=== PATIENT | male | born 1980 ===

== ENCOUNTER 2024-05-08 23:13 | Inpatient (IN) | payer MEDICAID, SELFPAY ==
[2024-05-08 23:16] VITALS: BP 160/101; PULSE 129; RESP 18; TEMP 37.2; O2SAT 98; BMI 27.4
[2024-05-08 23:37] LABS: Lactate Sepsis w/Reflex* 3.2 mmol/L (0.5-1.9)
[2024-05-08 23:39] LABS: Basophils Percent Auto 0.2 % (0.0-3.0); Eosinophils Percent Auto 1.2 % (0.0-7.0); Hemoglobin* 14.5 gm/dL (13.5-17.5); Lymphocytes Percent Auto 10.2 % (20-44); Mean Corpuscular HGB Conc 34 gm/dL (32-36); Mean Corpuscular Hemoglobin 30 pg (26-34); Mean Corpuscular Volume 89 fL (80-100); Monocytes Percent Auto 5.9 % (0.0-11.0); Neutrophils Percent Auto 81.5 % (42.0-72.0); Platelet Count* 332 K/uL (140-440); RDW Coefficient of Variation % 11.7 % (11.5-15.5); Red Blood Count 4.86 m/uL (4.30-5.90); White Blood Count* 12.32 K/uL (4.50-11.00)
[2024-05-08 23:41] LABS: Slide Review Reflex No
[2024-05-08 23:55] LABS: Chloride* 104 mmol/L (96-114); Sodium* 139 mmol/L (135-149)
[2024-05-08 23:56] LABS: Potassium* 3.4 mmol/L (3.6-5.1)
[2024-05-08 23:58] LABS: Anion Gap 12 mEq/L (7-15); Carbon Dioxide* 23 mmol/L (20-32); Creatinine* 0.6 mg/dL (0.5-1.5); Estimated Glomerular Filt Rate 123 ml/min
[2024-05-08 23:59] LABS: Blood Urea Nitrogen* 11 mg/dL (5-24); Calcium* 9.9 mg/dL (8.4-10.6); Glucose* 187 mg/dL (60-115)
[2024-05-09] VITALS (8 sets, daily range): BP systolic 140–171; BP diastolic 84–118; PULSE 74–97; RESP 14–18; TEMP 36.7–36.9; O2SAT 97–100; BMI 28.0
--- NOTE | 2024-05-09 | CRLHL7_ITS ---
For Patients: As a result of the Century Cures Act, medical imaging exams and procedure reports are released immediately into your electronic medical record. You may view this report before your referring provider. If you have questions, please contact your health care provider. TECHNIQUE: Multiplanar CT examination of the facial bones was performed without the use of intravenous contrast. INDICATION: Right periorbital swelling. COMPARISON: None. FINDINGS: Severe right periorbital and frontal soft tissue swelling. No drainable abscess identified. The orbital mg are intact. The globes are symmetric in size and normal in contour. The retrobulbar fat appears within normal limits. The nasal bones are intact. The zygomatic arches are intact. The mg of the maxillary sinuses are intact. Small maxillary sinus retention cyst. There is periapical lucency involving the maxillary and mandibular dentition, compatible with odontogenic disease. The paranasal sinuses and mastoid air cells are clear. The pterygoid plates are intact. The nasopharyngeal contours are unremarkable. The mandible and temporomandibular joints are intact. IMPRESSION: Severe right periorbital soft tissue swelling, suggestive of preseptal cellulitis. No drainable abscess identified. Please note that all CT scans at this facility use dose modulation, iterative reconstruction, and/or weight-based dosing when appropriate to reduce radiation dose to as low as reasonably achievable. Dictated by Jay Hurst MD @ 05/09/2024 12:32:29 AM (Electronically Signed)
--- NOTE | 2024-05-09 00:02 | ED.GENADULT ---
HPI - General Adult General Chief complaint: Edema Stated complaint: eye and leg infection Time Seen by Provider: 05/08/24 23:51 History of Present Illness HPI narrative: Patient is a 43-year-old gentleman who states he really has no past medical history who noticed a swelling with eruption on the left posterior thigh approximately 10 days ago. He has been trying to squeeze the area which is become more more inflamed he continues to put out a exudative drainage. Area of induration is approximately he 7 cm. He has significant pain and erythema as well as drainage. Approximately 3-4 days ago patient developed a 2nd area of induration and swelling around the superior aspect of the right eye. Patient has no MEDICAL TRANSCRIPTIONIST symptoms no fevers no chills no night sweats. He does come in tonight showing signs of sepsis with elevated blood pressure 160/101 and a pulse of 129 but does not have fever. Patient has general malaise body aches and fatigue. He does smoke but does not use IV drugs and does not drink alcohol to excess. He states his tetanus shot is up-to-date. Related Data Home Medications ?Medication ?Instructions ?Recorded ?Confirmed No Known Home Medications 05/08/24 05/08/24 Allergies Allergy/AdvReac Type Severity Reaction Status Date / Time dextromethorphan Allergy Mild Hives Verified 05/08/24 23:20 [From Dimetapp Cold-Congestion] diphenhydramine Allergy Mild Hives Verified 05/08/24 23:20 [From Dimetapp Cold-Congestion] guaifenesin Allergy Mild Hives Verified 05/08/24 23:20 [From Dimetapp Cold-Congestion] phenylephrine Allergy Mild Hives Verified 05/08/24 23:20 [From Dimetapp Cold-Congestion] pseudoephedrine Allergy Mild Hives Verified 05/08/24 23:20 [From Dimetapp Cold-Congestion] Review of Systems Status of ROS: Reports: 10 or more systems reviewed and unremarkable except as noted in History and below Exam Narrative: Exam Narrative: EXAM GENERAL: Patient appears uncomfortable and ill. EYES: No scleral icterus. He has a area of induration with no palpable fluctuance superior and medial to the right eye. This is approximately 5 cm in diameter. ENT: Tympanic membranes and oropharynx normal. THYROID: no thyroid nodules or thyromegaly. LYMPH: No supraclavicular or cervical lymphadenopathy. SKIN: Area of induration with erythema and drainage in the left posterior calf consistent with subcutaneous abscess. EXT: No dependent lower extremity pedal edema. HEART: Regular rate and rhythm with no murmurs, rubs, or gallops. LUNGS: Clear to auscultation bilaterally with no crackles or wheezes. ABD: Soft, non tender, non distended. PSYCH: Good eye contact, speech is not pressured. Const: Vital Signs, click to edit/add: Vital Signs - 24 hr 05/08/24 23:16 Temperature 99.0 F Pulse Rate [Left P ulse Oximeter] 129 H Respiratory Rate 18 Blood Pressure [Ri ght Upper Arm] 160/101 H Pulse Oximetry 98 Oxygen Delivery Me thod Room Air Course Course ED Course: A very concerned about this individual and will continue fluid high duration. I did start broad-spectrum antibiotics after collecting blood cultures x2. Wound was cultured. I do note his lactate is mildly elevated CBC shows a white count of 12. Electrolytes are reassuring CRP and sed rate pending. His facial CT pending. Vital Signs Vital signs: Initial Vital Signs Temperature 99.0 F 05/08/24 23:16 Temperature Source Temporal Artery Scan 05/08/24 23:16 Pulse Rate 129 H 05/08/24 23:16 Pulse Rhythm Regular 05/08/24 23:16 Respiratory Rate 18 05/08/24 23:16 Blood Pressure 160/101 H 05/08/24 23:16 Blood Pressure Mean 120 H 05/08/24 23:16 Blood Pressure Position Sitting 05/08/24 23:16 Pulse Oximetry 98 05/08/24 23:16 Oxygen Delivery Method Room Air 05/08/24 23:16 Vital Signs Temperature 99.0 F 05/08/24 23:16 Pulse Rate 129 H 05/08/24 23:16 Respiratory Rate 18 05/08/24 23:16 Blood Pressure 160/101 H 05/08/24 23:16 Pulse Oximetry 98 05/08/24 23:16 Oxygen Delivery Method Room Air 05/08/24 23:16 Temperature 99.0 F 05/08/24 23:16 Pulse Rate 129 H 05/08/24 23:16 Respiratory Rate 18 05/08/24 23:16 Blood Pressure 160/101 H 05/08/24 23:16 Pulse Oximetry 98 05/08/24 23:16 Oxygen Delivery Method Room Air 05/08/24 23:16 Medications Administered Medications: Generic Name Dose Route Start Last Admin Trade Name Freshad PRN Reason Stop Dose Admin Sodium Chloride 1,000 mls @ 1,000 mls/hr 05/08/24 23:58 05/09/24 00:42 0.9 % Sodium Chloride 1000 Ml IV 05/09/24 00:57 Infused .Q1H RONNIE Infusion Ondansetron HCl 4 mg 05/09/24 00:10 05/09/24 00:28 Ondansetron 2 Mg/Ml Inj IVP 4 mg ONCE PRN Administration Discontinued Medications Generic Name Dose Route Start Last Admin Trade Name Freq PRN Reason Stop Dose Admin Hydromorphone HCl 0.5 mg 05/09/24 00:10 05/09/24 00:28 Hydromorphone 0.5 Mg/0.5 Ml Inj IVP 05/09/24 00:11 0.5 mg ONCE ONE Administration Piperacillin Sod/Tazobactam 100 mls @ 200 mls/hr 05/08/24 23:58 05/09/24 00:42 Sod 3.375 gm/ Sodium Chloride IVPB 05/08/24 23:59 Infused ONCE ONE Infusion Medical Decision Making MDM Narrative Medical decision making narrative: Patient presents with sepsis syndrome and 2 areas of likely cellulitis the lesion on the left posterior thigh had some fluctuance which we did send for culture. I did aggressively palpate the wound I do not believe incision drainage would be helpful now but surgical consultation can be obtained. I also obtain blood cultures x2. Leukocytosis noted sed rate CRP pending. Lactate mildly elevated patient given fluid bolus broad-spectrum antibiotics with Zosyn and vancomycin and subsequently admitted for further evaluation and treatment. Of note I did do a facial bone CT and while there is cellulitis above the right eye there does not appear to be a drainable abscess. Care transferred to hospitalist. Lab Data Labs: Lab Results 05/08/24 05/09/24 Range/Units 23:30 00:00 WBC 12.32 H (4.50-11.00) K/uL RBC 4.86 (4.30-5.90) m/uL Hgb 14.5 (13.5-17.5) gm/dL Hct 43.0 (37.0-53.0) % MCV 89 (80-100) fL MCH 30 (26-34) pg MCHC 34 (32-36) gm/dL RDW Coeff of Smita 11.7 (11.5-15.5) % Plt Count 332 (140-440) K/uL Neut % (Auto) 81.5 H (42.0-72.0) % Lymph % (Auto) 10.2 L (20-44) % [place] % (Auto) 5.9 (0.0-11.0) % Eos % (Auto) 1.2 (0.0-7.0) % Baso % (Auto) 0.2 (0.0-3.0) % Neut # (Auto) 10.00 H (1.7-7.0) K/uL Lymph # (Auto) 1.30 (0.90-2.90) K/uL [place] # (Auto) 0.70 (0.00-0.90) K/UL Eos # (Auto) 0.10 (0.00-0.50) K/uL Baso # (Auto) 0.00 (0.00-0.30) K/uL Abs Immat Gran (auto) 0.10 (0.00-0.30) K/uL Imm/Tot Granulo (auto) 1.0 % ESR 56 H (2-15) mm/hr Sodium 139 (135-149) mmol/L Potassium 3.4 L (3.6-5.1) mmol/L Chloride 104 (96-114) mmol/L Carbon Dioxide 23 (20-32) mmol/L Anion Gap 12 (7-15) mEq/L BUN 11 (5-24) mg/dL Creatinine 0.6 (0.5-1.5) mg/dL Estimated Creat Clear 194.90 Estimated GFR 123 ml/min Glucose 187 H (60-115) mg/dL Lactate 3.2 H (0.5-1.9) mmol/L Calcium 9.9 (8.4-10.6) mg/dL Discharge Plan Discharge Clinical Impression: Cellulitis Patient Disposition: Admitted As Observation Condition: Stable Activity Level: Other Discharge Diet: Other Prescriptions: No Action No Known Home Medications
[2024-05-09] MEDS: 0.9 % SODIUM CHLORIDE 1000 ml 1,000 ML IV (00:28)
[2024-05-09] MEDS: ONDANSETRON 2 MG/ML inj 4 MG IVP (00:28)
[2024-05-09] MEDS: HYDROmorphone 0.5 mg/0.5 ml inj IVP ×4 (00:28→22:30)
[2024-05-09] MEDS: PIPERACILLIN/TAZOBACTAM 3.375 GM in 0.9 % SODIUM CHLORIDE Mini-bag 100 ML IVPB (00:35)
[2024-05-09 00:48] LABS: Erythrocyte SedimentationRate* 56 mm/hr (2-15)
[2024-05-09] MEDS: VANCOMYCIN 1.5 GM/300 ML 1.5 GM/300 ML PIGGYBACK IVPB (00:52)
[2024-05-09 00:55] LABS: C Reactive Protein* 2.3 mg/dL (0.5-1.0)
--- OUTSIDE RECORDS SUMMARY | 2024-05-09 01:07 | XMS_ITS | Encounter Summary ---
Author Organization [place] Address [facility] [place] [address] Care Team Providers Care Lathe Scalper Operator Name Role Phone [facility] Primary Care Provider Aleta Mario INFORMATION TECHNOLOGY INTERN Unavailable [phone] Aleta Mario INFORMATION TECHNOLOGY INTERN Unavailable [phone] Encounter Details Date Type Department Care Team (Latest Contact Info) Description 08/10/2020 [facility] [address] [place] [address] [address] [place] [address] Deon oRdriguez MD [address] [facility] [address] [place], [place] [address] Acute periodontitis (Primary Dx) Social History Tobacco Use Types Packs/Day Years Used Date Smoking Tobacco: Every Day Cigarettes Smokeless Tobacco: Never Alcohol Use Standard Drinks/Week Comments Yes 0 (1 standard drink = 0.6 oz pur e alcohol) once a month PHQ-2 Answer Date Recorded PHQ-2 Score 0 01/22/2020 Sex and Gender Information Value Date Recorded Sex Assigned at Not on file Gender Identity Not on file Sexual Orientation Not on file COVID-19 Exposure Response Date Recorded In the last month, have you been in contact with someone who was confirmed or suspected to have Coronavirus / COVID-19? No / Unsure 08/12/2020 2:54 PM TYPE COPYIST documented as of this encounter Miscellaneous Notes * Telephone Encounter - Deon Rodriguez MD - 08/11/2020 12:12 PM TYPE COPYIST Called and spoke with Nate. Has two bad teeth on his right maxillary teeth. Having ongoing pain, swelling, and redness. No subjective fever. No other symptoms besides pain. No malaise or other constitutional sx. Rx for amoxicillin as below, 7d course. Advised any fevers above 100.5 or other worsening constitutional symptoms requires evaluation in person. Diagnoses and all orders for this visit: Acute periodontitis - amoxicillin (AMOXIL) 500 MG capsule; Take 1 capsule (500 mg) by mouth 3 times daily Deon Rodriguez MD COPYIST * Telephone Encounter - Yola Grimaldo RN - 08/10/2020 4:19 PM CST Patient wishes to be called by Dr. Rodriguez on an alternate phone number: Also, please call [employer] phone, mine isn???t working. [phone] COPYIST documented in this encounter Plan of Treatment Not on file documented as of this encounter Visit Diagnoses Diagnosis Acute periodontitis- Primary documented in this encounter Additional Health Concerns Infection Onset Date Last Indicated Resolved Time COVID-19 08/04/2020 08/04/2020 08/25/2020 11:4 1 PM TYPE COPYIST documented as of this encounter Care Teams Lathe Scalper Operator Relationship Specialty Start Date End Date [facility] [address] [place], [place] [address] PCP - General 08/04/16 Aleta Mario NP [address] [place] [address] [place] [id number] Assigned PCP 07/27/22 Aleta Mario NP [address] [place] [address] [place] [id number] Assigned Pain Medication Provider 09/25/22 03/16/23 documented as of this encounter
--- OUTSIDE RECORDS SUMMARY | 2024-05-09 01:07 | XMS_ITS | Encounter Summary ---
Author Organization [place] Address [address] [place] [address]. [place] [address] Care Team Providers Care Glass Cleaner Name Role Phone [facility] Primary Care Provider Aleta Mario AUTOMOTIVE SERVICE CONSULTANT Unavailable [phone] Aleta Mario AUTOMOTIVE SERVICE CONSULTANT Unavailable [phone] Reason for Visit * Reason Onset Date Comments MH/CD Inpatient 06/22/2019 Encounter Details Date Type Department Care Team ([facility] Contact Info) Description 06/22/[address] [facility] Behavioral Health Intake [address] [place] [id number] Generic, Behavioral Intake, MH/CD Inpatient Social History Tobacco Use Types Packs/Day Years Used Date Smoking Tobacco: Every Day Cigarettes Smokeless Tobacco: Never Alcohol Use Standard Drinks/Week Comments Yes 0 (1 standard drink = 0.6 oz pur e alcohol) once a month Sex and Gender Information Value Date Recorded Sex Assigned at Not on file Gender Identity Not on file Sexual Orientation Not on file documented as of this encounter Miscellaneous Notes * Telephone Encounter - Олег Jesus - 06/22/2019 3:22 PM CDT S Pt is a 38 year old male at the [facility]. B Pt has a history of opoid dependence, depression, and anxiety. He uses heroin up to a gram daily but only used around 1/4g and does use IV this morning. When pt cannot get heroin he uses 8-16mg of suboxone that he buys on the streets. 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 Pt denies any other drug use. He does have a history of treatment. Pt is calm and cooperative. He has no medical complaints. Pt UTOX is negative. When pt was asked by ER staff regarding his UTOX being negative pt said today he used something different and it could have possibly been fentanyl or another substance. Pt labs have resulted and his only abnormality is a high glucose level of 147. Initial vitals were: BP: (!) 156/87 Pulse: 88 Temp: 97.7 ??F (36.5 ??C) Resp: 18 SpO2: 100 % A Voluntary R Ga/3aw - Pt is a vet - This credit underwriter contacted [facility] and beds are full. However [facility] has bed availability. - Pt asked by ER Dr. Sawyer and pt declines admission for the NC and wants to be admitted to [facility] - Dr. Chino in ED wants a doc to doc initiated 4:20PM and pt will be admitted per Dr. Sepulveda documented in this encounter Plan of Treatment Not on file documented as of this encounter Visit Diagnoses Not on filedocumented in this encounter Additional Health Concerns Infection Onset Date Last Indicated Resolved Time Rule Out COVID-19 08/04/2020 08/04/2020 08/05/2020 5:31 PM LABORER GENERAL COVID-19 08/04/2020 08/04/2020 08/25/2020 11:4 1 PM LABORER GENERAL documented as of this encounter Care Teams Glass Cleaner Relationship Specialty Start Date End Date [facility] [address] [place] [address] PCP - General 08/04/16 Aleta Mario NP [address] [facility] [place] [id number] Assigned PCP 07/27/22 Aleta Mario NP [address] [facility] [place] [id number] Assigned Pain Medication Provider 09/25/22 03/16/23 documented as of this encounter
--- OUTSIDE RECORDS SUMMARY | 2024-05-09 01:07 | XMS_ITS | Encounter Summary ---
Author Organization [place] Address [facility] [place] [address] Care Team Providers Care Lump Machine Operator Name Role Phone [facility] Primary Care Provider Aleta Mario CLAY DRY PRESS OPERATOR Unavailable [phone] Aleta Mario CLAY DRY PRESS OPERATOR Unavailable [phone] Reason for Visit * Reason Onset Date Comments Prior Auth - Medication 05/12/2021 Naldemed ine Tosylate (Symproic) 0.2 mg tabs- APPROVED Encounter Details Date Type Department Care Team (Late st Contact Info) Description 05/12/2021 Telephone [facility] [address] [place] [address] Deon Rodriguez MD [address] [place] [address] Prior Auth - Medication (Naldemedine Tosylate (Symproic) 0.2 mg tabs- APPROVED ) Social History Tobacco Use Types Packs/Day Years Used Date Smoking Tobacco: Every Day Cigarettes Smokeless Tobacco: Never Alcohol Use Standard Drinks/Week Comments Yes 0 (1 standard drink = 0.6 oz pur e alcohol) once a month PHQ-2 Answer Date Recorded PHQ-2 Score 0 11/02/2020 Sex and Gender Information Value Date Recorded Sex Assigned at Not on file Gender Identity Not on file Sexual Orientation Not on file documented as of this encounter Miscellaneous Notes * Telephone Encounter - Nigel Tierney - 05/12/2021 11:25 AM CDT Images from the original note were not included. Prior Authorization Approval Authorization Effective Date: 04/12/2021 Authorization Expiration Date: 05/12/2022 Medication: Naldemedine Tosylate (Symproic) 0.2 mg tabs- APPROVED Approved Dose/Quantity: Reference #: Insurance [employer]: [employer] - Expected CoPay: CoPay Card Available: Foundation Assistance Needed: Which Pharmacy is filling the prescription (Not needed for infusion/clinic administered): [id number] [address] [place] [address] Pharmacy Notified: Yes Patient Notified: Instructed pharmacy to notify patient when script is ready to belt picker/ship. * Telephone Encounter - Nigel Tierney - 05/12/2021 10:48 AM CDT Images from the original note were not included. Central Prior Authorization Team PA Initiation Medication: Naldemedine Tosylate (Symproic) 0.2 mg tabs Insurance Company: [employer] - Pharmacy Filling the Rx: [id number] [id number] [facility] [address] [address] [address] Filling Pharmacy Filling Pharmacy Fax: Start Date: 05/12/2021 * Telephone Encounter - Nigel Tierney - 05/12/2021 10:32 AM CDT Due to PA tracking purposes, pa for doxepin has been started on another encounter. * Telephone Encounter - Daly Busby - 05/12/2021 10:15 AM CDT Prior Authorization Retail Medication Request Medication/Dose: Naldemedine Tosylate (SYMPROIC) 0.2 MG TABS ICD code (if different than what is on RX): Previously Tried and Failed: Rationale: Insurance Name: [address] [place] [address] Pharmacy Information (if different than what is on RX) [facility][id number] [facility] [address] [address] [place] [address] Prior Authorization Retail Medication Request Medication/Dose: doxepin (SILENOR) 3 MG tablet Previously Tried and Failed: Rationale: Insurance Name: [id number] Pharmacy Information (if different than what is on RX) [facility] #[id number] [place] [address] [address] [place] [address] documented in this encounter Plan of Treatment Not on file documented as of this encounter Visit Diagnoses Not on filedocumented in this encounter Additional Health Concerns Assessment Noted Time PHQ-9 Depression Total Score: 0 11/02/19 21 1:34 PM MOLD PREPARER documented as of this encounter Care Teams Lump Machine Operator Relationship Specialty Start Date End Date [facility], [facility] [address] [place], [place] [address] PCP - General 08/04/16 Aleta Mario NP [address] [place] [address] [place] [id number] Assigned PCP 07/27/22 Aleta Mario NP [address] [place] [address] [place] [id number] Assigned Pain Medication Provider 09/25/22 03/16/23 documented as of this encounter
--- OUTSIDE RECORDS SUMMARY | 2024-05-09 01:07 | XMS_ITS | Encounter Summary ---
Author Organization [place] Address [facility] [place] [address] Care Team Providers Care Box Sealing Machine Operator Name Role Phone [facility] Primary Care Provider Aleta Mario HOT ROLL LAMINATOR Unavailable [phone] Aleta Mario HOT ROLL LAMINATOR Unavailable [phone] Reason for Visit * Reason Onset Date Comments Medication Request 08/13/2019 buprenorphine HCl-naloxone HCl (SUBOXONE) 8-2 MG per film Encounter Details Date Type Department Care Team (Late st Contact Info) Description 08/13/2019 Telephone [facility] [address] [place] [address] Deon Rodriguez MD [address] [place] [address] Medication Request (buprenorphine HCl-naloxone HCl (SUBOXONE) 8-2 MG per film) Social History Tobacco Use Types Packs/Day Years [...] encounter Miscellaneous Notes * Telephone Encounter - [place] Alejandrina - 08/15/2019 11:10 AM CST Patient is scheduled for 08/18 @ 8:30 AM ON CAPTURE POWER PLANT MANAGER * Telephone Encounter - Nadia Cameron RN - 08/15/2019 9:55 AM CARBON CAPTURE POWER PLANT MANAGER Distribution Designer attempted to contact patient-- no answer, LVM with information from provider, appt option given as well. If patient calls back, please offer open sooner appt (08/18 @ 8:30am). Nadia Cameron RN 08/15/19 9:55 AM ON CAPTURE POWER PLANT MANAGER * Telephone Encounter - Deon Rodriguez MD - 08/13/2019 3:20 PM CARBON CAPTURE POWER PLANT MANAGER Patient only seen once here over 1 month ago, given 2 week supply. Will need to be seen again before bridge written. Please get him in [place], ok to double-book with me if needed. Deon Rodriguez MD ON CAPTURE POWER PLANT MANAGER * Telephone Encounter - Nadia Cameron RN - 08/13/2019 2:50 PM CARBON CAPTURE POWER PLANT MANAGER Images from the original note were not included. ??? Patient given 2 week supply of medication on 07/03-- should have been out weeks ago if taking as prescribed. Distribution Designer attempted to contact patient-- no answer, unable to LVM-- phone kept ringing If patient calls back, transfer to nursing. Medication pended for 8 day supply. Routing to provider as patient reports being out of medication as of today. Refill for: buprenorphine HCl-naloxone HCl (SUBOXONE) 8-2mg Last Appointment: 07/03/19 Next Appointment: 08/21/19 No Shows/Cancellations since last appointment: no show: 07/17 Last Refill in [facility] (date and amount/how many days): Disp Refills Start End CASPER buprenorphine HCl-naloxone HCl (SUBOXONE) 8-2 MG per film 28 Film 0 07/03/2019 -- Si.5 films in AM, 1/2 film at lunch Most Recent UDS results: POS: benzodiazepines and buprenorphine on 07/03 LEARNING SUPPORT SPECIALIST reviewed and summarized below: Nadia Cameron RN 08/13/19 2:50 PM ON CAPTURE POWER PLANT MANAGER * Telephone Encounter - Mona Hilla - 08/13/2019 2:20 PM CST Reason for Call: Medication Request due to: out of medication early Name of the pharmacy and phone number for the current request: [facility] Request for bridge of: buprenorphine HCl-naloxone HCl (SUBOXONE) 8-2 MG per film Other Information: Taking as prescribed: Yes Date/Time/ amount of last dose: 08/13 AM Pt informed to follow up with pharmacy for status of refill as addiction RN will only reach out if there are any issues or questions and will be addressed within one business day. Pt also informed that this request for a bridge is simply a request and doesn't guarantee the medication will be filled. Can we leave a detailed message on this number? Yes Phone number patient can be reached at: [phone] Best Time: ANy ON CAPTURE POWER PLANT MANAGER documented in this encounter Plan of Treatment Not on file documented as of this encounter Visit Diagnoses Diagnosis Opioid use disorder, severe, on maintenance therapy (H) documented in this encounter Additional Health Concerns Infection Onset Date Last Indicated Resolved Time Rule Out COVID-19 08/04/2020 08/04/2020 08/05/2020 5:31 PM CARBON CAPTURE POWER PLANT MANAGER COVID-19 08/04/2020 08/04/2020 08/25/2020 11:4 1 PM CARBON CAPTURE POWER PLANT MANAGER documented as of this encounter Care Teams Box Sealing Machine Operator Relationship Specialty Start Date End Date [facility] [place] [address] PCP - General 08/04/16 Aleta Mario NP [address] [place] [address] [place] [id number] Assigned PCP 07/27/22 Aleta Mario NP [address] [place] [address] [place] [id number] Assigned Pain Medication Provider 09/25/22 03/16/23 documented as of this encounter
--- OUTSIDE RECORDS SUMMARY | 2024-05-09 01:07 | XMS_ITS | Encounter Summary ---
Author Organization [place] Address [address] [place] [address] Care Team Providers Care Assistant Baseball Coach Name Role Phone [facility] Primary Care Provider Aleta Mario MUSEUM ARCHIVIST Unavailable [phone] Aleta Mario MUSEUM ARCHIVIST Unavailable [phone] Encounter Details Date Type Department Care Team ([facility] st Contact Info) Description 01/26/2022 [facility] Medical Advice [address] [address] Alejandrina Orozco V Social History Tobacco Use Types Packs/Day Years Used Date Smoking Tobacco: Every Day Cigarettes Smokeless Tobacco: Never Alcohol Use Standard Drinks/Week Comments Yes 0 (1 standard drink = 0.6 oz pur e alcohol) once a month PHQ-2 Answer Date Recorded PHQ-2 Total Score (Adult) - Positive if 3 or more points; Administer PHQ-9 if positive 0 12/23/2021 Sex and Gender Information Value Date Recorded Sex Assigned at Not on file Gender Identity Not on file Sexual Orientation Not on file documented as of this encounter Plan of Treatment Not on file documented as of this encounter Visit Diagnoses Not on filedocumented in this encounter Additional Health Concerns Assessment Noted Time PHQ-9 Depression Total Score: 6 12/25/19 22 7:04 AM CDT documented as of this encounter Care Teams Assistant Baseball Coach Relationship Specialty Start Date End Date [facility] [place] [address] PCP - General 08/04/16 Aleta Mario NP [address] [facility] [place] [id number] Assigned PCP 07/27/22 Aleta Mario NP [address] [facility] [place] [id number] Assigned Pain Medication Provider 09/25/22 03/16/23 documented as of this encounter
--- OUTSIDE RECORDS SUMMARY | 2024-05-09 01:07 | XMS_ITS | Encounter Summary ---
Author Organization [place] Address [facility]0 [facility] [place] [address] Care Team Providers Care Public Relations Intern Name Role Phone [facility] Primary Care Provider Aleta Mario FILM EDITOR SUPERVISOR Unavailable [phone] Aleta Mario FILM EDITOR SUPERVISOR Unavailable [phone] Encounter Details Date Type Department Care Team (Late st Contact Info) Description 01/22/2020 [facility] [address] [place] [address] [address] [place] [address] Deon Rodriguez MD [address] [place] [address] [address] [place], [place] [id number] Social History Tobacco Use Types Packs/Day Years [...] have Coronavirus / COVID-19? No / Unsure 01/22/2020 2:23 PM CDT documented as of this encounter Plan of Treatment Not on file documented as of this encounter Visit Diagnoses Not on filedocumented in this encounter Additional Health Concerns Infection Onset Date Last Indicated Resolved Time Rule Out COVID-19 08/04/2020 08/04/2020 08/05/2020 5:31 PM RETAIL EVENT AND SALES ASSISTANT COVID-19 08/04/2020 08/04/2020 08/25/2020 11:4 1 PM RETAIL EVENT AND SALES ASSISTANT documented as of this encounter Care Teams Public Relations Intern Relationship Specialty Start Date End Date [facility], [facility] [address] [place] [address] PCP - General 08/04/16 Aleta Mario NP [address] [place] [address] [place] [id number] Assigned PCP 07/27/22 Aleta Mario NP [address] [facility] [place] [id number] Assigned Pain Medication Provider 09/25/22 03/16/23 documented as of this encounter
--- OUTSIDE RECORDS SUMMARY | 2024-05-09 01:07 | XMS_ITS | Encounter Summary ---
Author Organization [place] Address [facility] [place] [address] Care Team Providers Care Physician Locums Urgent [facility] Name Role Phone [facility] Primary Care Provider Aleta Mario FINISH MACHINE TENDER Unavailable [phone] Aleta Mario FINISH MACHINE TENDER Unavailable [phone] Encounter Details Date Type Department Care Team (Late st Contact Info) Description 08/10/2020 [facility] [address] [place] [address] [address] [place] [address] Deon Rodriguez MD [address] [place] [address] [address] [place] [address] Social History Tobacco Use Types Packs/Day Years [...] COVID-19? No / Unsure 08/12/2020 2:54 PM SPINNING FRAME TENDER documented as of this encounter Miscellaneous Notes * Telephone Encounter - Yola Grimaldo RN - 08/10/2020 4:20 PM CST Patient sent two messages regarding the same request. Message consolidated. Closing this encounter. NING FRAME TENDER documented in this encounter Plan of Treatment Not on file documented as of this encounter Visit Diagnoses Not on filedocumented in this encounter Additional Health Concerns Infection Onset Date Last Indicated Resolved Time COVID-19 08/04/2020 08/04/2020 08/25/2020 11:4 1 PM SPINNING FRAME TENDER documented as of this encounter Care Teams Physician Locums Urgent [facility] Relationship Specialty Start Date End Date [facility] [place] [address] PCP - General 08/04/16 Aleta Mario NP [address] [place] [address] [place] [id number] Assigned PCP 07/27/22 Aleta Mario NP [address] [place] [address] [place] [id number] Assigned Pain Medication Provider 09/25/22 03/16/23 documented as of this encounter
--- OUTSIDE RECORDS SUMMARY | 2024-05-09 01:07 | XMS_ITS | Encounter Summary ---
Author Organization [place] Address [address] [place] [address] Care Team Providers Care Sales Lead Generator Name Role Phone [facility] Primary Care Provider Aleta Mario NP Unavailable [phone] Aleta Mario NP Unavailable [phone] Encounter Details Date Type Department Care Team (Late st Contact Info) Description 10/26/2021 [facility] Medical Advice [facility] [place] [address] [place] [address] [address] [place] [address] Alejandrina Orozco V Social History Tobacco [...] Total Score: 0 11/02/19 21 1:34 PM ASSISTANT BUYER documented as of this encounter Care Teams Sales Lead Generator Relationship Specialty Start Date End Date [facility] [place] [address] PCP - General 08/04/16 Aleta Mario NP [address] [place] [address] [place] [id number] Assigned PCP 07/27/22 Aleta Mario NP [address] [facility] [place] [id number] Assigned Pain Medication Provider 09/25/22 03/16/23 documented as of this encounter
--- OUTSIDE RECORDS SUMMARY | 2024-05-09 01:07 | XMS_ITS | Encounter Summary ---
Author Organization [place] Address [address] [place] [address] Care Team Providers Care Residential Support Worker Name Role Phone [facility] Primary Care Provider Aleta Mario PRECISION ASSEMBLER BENCH Unavailable [phone] Aleta Mario PRECISION ASSEMBLER BENCH Unavailable [phone] Encounter Details Date Type Department Care Team ([facility] st Contact Info) Description 09/04/2022 [facility] Medical Advice [facility] [place] [address] [place] [address] [address] [place] [address] Gabbi Kuhn Social History Tobacco Use Types Packs/Day Years Used Date Smoking Tobacco: Every Day Cigarettes Smokeless Tobacco: Never Alcohol Use Standard Drinks/Week Comments Yes 0 (1 standard drink = 0.6 oz pur e alcohol) once a month PHQ-2 Answer Date Recorded PHQ-2 Score 0 03/06/2022 Sex and Gender Information Value Date Recorded Sex Assigned at Not on file Gender Identity Not on file Sexual Orientation Not on file documented as of this encounter Plan of Treatment Not on file documented as of this encounter Visit Diagnoses Not on filedocumented in this encounter Additional Health Concerns Assessment Noted Time PHQ-9 Depression Total Score: 0 03/06/20 22 2:49 PM CDT documented as of this encounter Care Teams Residential Support Worker Relationship Specialty Start Date End Date [facility] [place], [place] [id number] PCP - General 08/04/16 Aleta Mario NP [address] [facility] [place] [id number] Assigned PCP 07/27/22 Aleta Mario NP [address] [facility] [place] [id number] Assigned Pain Medication Provider 09/25/22 03/16/23 documented as of this encounter
--- OUTSIDE RECORDS SUMMARY | 2024-05-09 01:07 | XMS_ITS | Referral Summary ---
Author Organization [place] Address [address] [place] [address] Care Team Providers Care Lamination Spinner Name Role Phone [facility] Primary Care Provider Aleta Mario DIRECTOR CLINICAL INFORMATION SERVICES Unavailable [phone] Allergies Active Allergy Reactions Criticality Noted Date Comments Ezdcabcsd-Cjr-Nf-Apap Rash Low 05/29/2013 Medications Medication Sig Dispensed Refills Start Date End Date Status nicotine polacrilex (NICORETTE) 4 MG gumIndications:Toba strategic account executive dependence syndrome Place 1 each (4 mg) inside cheek as needed for smoking cessation 110 tablet 11 09/01/2020 Active fluticasone (FLONASE) 50 MCG/ACT nasal sprayIndications:Se asonal allergic rhinitis, unspecified trigger [place] 1 spray into both nostrils daily 16 mL 1 12/01/2020 Active cetirizine (ZYRTEC) 10 MG tabletIndications:S easonal allergic rhinitis, unspecified trigger Take 1 tablet (10 mg) by mouth daily 90 tablet 3 12/01/2020 Active polyethylene glycol (MIRALAX) 17 GM/Dose powderIndications:O pioid use disorder, severe, on maintenance therapy (H) Take 17 g by mouth daily 510 g 3 08/31/2021 Active doxepin (SILENOR) 3 MG tabletIndications:S leep difficulties Take 1 tablet (3 mg) by mouth nightly as needed for sleep 90 tablet 03/06/2022 Active ibuprofen (ADVIL/MOTRIN) 800 MG tabletIndications:O ther chronic pain Take 1 tablet (800 mg) by mouth every 8 hours as needed for moderate pain 50 tablet 1 03/06/2022 Active magnesium hydroxide (MILK OF MAGNESIA) 400 MG/5ML suspensionIndicatio ns:Constipation, unspecified constipation type Take 15 mLs by mouth daily as needed for constipation 473 mL 3 05/15/2022 Active magnesium 250 MG tabletIndications:C onstipation, unspecified constipation type Take 1 tablet (250 mg) by mouth daily 90 tablet 06/16/2022 Active prazosin (MINIPRESS) 2 MG capsuleIndications: PTSD (post-traumatic stress disorder),Chronic insomnia Take 1 capsule (2 mg) by mouth At Bedtime 90 capsule 1 08/25/2022 Active hydrOXYzine (ATARAX) 25 MG tabletIndications:A nxiety disorder, unspecified type Take 1-2 tablets (25-50 mg) by mouth 3 times daily as needed for anxiety 60 tablet 1 12/04/2022 Active buprenorphine HCl-naloxone HCl (SUBOXONE) 8-2 MG per filmIndications:Opi oid use disorder, severe, on maintenance therapy (H) Place 1 Film under the tongue 3 times daily 21 Film 08/10/2023 Active Active Problems Problem Noted Date Diagnosed Date PTSD (post-traumatic stress disorder) 07/31/2020 Opioid use disorder, severe, on maintenance ther apy 07/03/2019 Overview: OUD Treatment Plan, with historical details (incl SHx) Rx details: Suboxone 8-2mg films, 1 film TID F/up: 4 weeks Severity indicators (O/D, IVDU, etc): IV heroin, one overdose, PTSD Medical complications: none Housing: Stable in [facility] Capital: girlfriend 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 Girlfriend Arin Tx history Total of about 5 treatments, most recently at [facility] in 2018. Started @ after detox, 06/27/19 Current Psychosocial tx: None; encouraging CBT-I and PTSD therapy Recent Changes: Jul 30, 2020 - Increased suboxone to 24mg; encouraged CBT-I, which may resolve perceived evening withdrawal symptoms Sep 01, 2020 - No change Opiate dependence 12/03/2014 Heroin withdrawal 04/07/2014 Chemical dependency 06/09/2013 Resolved Problems Problem Noted Date Diagnosed Date Resolved Date Major depressive disorder 05/29/2013 Immunizations Name Administration Dates Next Due Influenza Vaccine >6 months,guevara, PF 06/25/2019 Social History Tobacco Use Types Packs/Day Years Used Date Smoking Tobacco: Every Day Cigarettes Smokeless Tobacco: Never Alcohol Use Standard Drinks/Week Comments Yes 0 (1 standard drink = 0.6 oz pur e alcohol) once a month PHQ-2 Answer Date Recorded PHQ-2 Score 0 03/06/2022 Adolescent Education Answer Date Record ed Getting School Help Needed Not on file 06/16 Sex and Gender Information Value Date Recorded Sex Assigned at Not on file Gender Identity Not on file Sexual Orientation Not on file Last Filed Vital Signs Vital Sign Reading Time Taken Comments Blood Pressure 126/70 05/15/2022 5:12 PM CDT Pulse 76 05/15/2022 5:12 PM CDT Temperature 36.4 ??C (97.6 ??F) 05/15/2022 5:12 PM CD T Respiratory Rate 16 05/15/2022 5:12 PM CDT Oxygen Saturation 97% 05/15/2022 5:12 PM CDT Inhaled Oxygen Concentration - - Weight 113.4 kg (250 lb) 05/15/2022 5:12 PM CDT Height 193 cm (6' 4) 03/06/2022 2:55 PM CDT Body Mass Index 30.43 03/06/2022 2:55 PM CDT Plan of Treatment Not on file Procedures Procedure Name Priority Date/Time Associated Diagnosis Comments HEPATITIS C RNA, QUANTITATIVE BY PCR Routine 07/03/2019 1:47 PM CDT Chronic hepatitis C without hepatic coma (H) HIV ANTIGEN ANTIBODY COMBO Add-On AM 06/23/2019 8:47 AM CDT Uncomplicated opioid dependence (H) COMPREHENSIVE METABOLIC PANEL STAT 06/22/2019 1:18 PM CDT from Last 3 Months or Most Recently Relevant to Health Maintenance Results * Hepatitis C RNA, quantitative (07/03/2019 1:47 PM CDT) HCV RNA Quant IU/ml HCV RNA Not Detected HCVND^HCV RNA Not Detected [IU]/mL 07/07/2019 7:17 AM CDT [facility] Comment: The RODRIGO AmpliPrep/RODRIGO TaqMan HCV Test is an FDA-approved in vitro nucleic acid amplification test for the quantitation of HCV RNA in human plasma (ETDA plasma) or serum using the RODRIGO AmpliPrep Instrument for automated viral nucleic acid extraction and the RODRIGO TaqMan Analyzer or RODRIGO TaqMan for automated Real Time PCR amplification and detection of the viral nucleic acid target. Titer results are reported in International Units/mL (IU/mL) using the 1st WHO International standard for HCV for Nucleic Acid Amplification based assays. Log of HCV RNA Qt Not Calculated <1.2 Log IU/mL 07/07/2019 7:17 AM CDT [facility] Blood specimen (specimen) 07/03/2019 1:47 PM CDT 07/03/2019 1:48 PM CDT Deon Rodriguez MD LAB - BLOOD ORDERAB LES Performing Organization Address City/[facility]/ZIP Co de Phone Number [facility] [address] * HIV Antigen Antibody Combo (06/23/2019 8:47 AM CDT) HIV Antigen Antibody Combo Nonreactive NR^Nonrea ctive 06/23/2019 1:[address] [facility] Comment:HIV-1 p24 Ag & HIV-1 /HIV-2 Ab Not Detected Blood specimen (specimen) 06/23/2019 8:47 AM CDT 06/23/2019 8:48 AM CDT Bryant Koroma MD LAB - BLOOD ORDERABL ES [facility] [address] [place] [address] * (ABNORMAL) Comprehensive metabolic panel (06/22/2019 1:18 PM CDT) Sodium 141 133 - 144 mmol/L 06/22/2019 2:28 PM CDT [facility] Potassium 3.6 3.4 - 5.3 mmol/L 06/22/2019 2:28 PM CDT [facility] Chloride 105 94 - 109 mmol/L 06/22/2019 2:28 PM CDT [facility] Carbon Dioxide 27 20 - 32 mmol/L 06/22/2019 2:35 PM T [facility] Anion Gap 9 3 - 14 mmol/L 06/22/2019 2:35 PM T [facility] Glucose 147(H) 70 - 99 mg/dL 06/22/2019 2:35 PM T [facility] Urea Nitrogen 16 7 - 30 mg/dL 06/22/2019 2:35 PM T [facility] Creatinine 0.98 0.66 - 1.25 mg/dL 06/22/2019 2:35 PM T [facility] GFR Estimate >90 >60 mL/min/{1 .73_m2} 06/22/2019 2:35 PM [facility] Comment: Non GFR Calc Starting 09/03/2018, serum creatinine based estimated GFR (eGFR) will be calculated using the Chronic Kidney Disease Epidemiology Collaboration (CKD-EPI) equation. GFR Estimate If Black >90 >60 mL/min/{1 .73_m2} 06/22/2019 2:35 PM T [facility] Comment: GFR Calc Starting 09/03/2018, serum creatinine based estimated GFR (eGFR) will be calculated using the Chronic Kidney Disease Epidemiology Collaboration (CKD-EPI) equation. Calcium 9.2 8.5 - 10.1 mg/dL 06/22/2019 2:35 PM T [facility] Bilirubin Total 0.7 0.2 - 1.3 mg/dL 06/22/2019 2:38 PM T [facility] Albumin 4.3 3.4 - 5.0 g/dL 06/22/2019 2:38 PM T [facility] Protein Total 8.6 6.8 - 8.8 g/dL 06/22/2019 2:38 PM T [facility] Alkaline Phosphatase 78 40 - 150 U/L 06/22/2019 2:38 PM T [facility] ALT 16 0 - 70 U/L 06/22/2019 2:38 PM T [facility] AST 11 0 - 45 U/L 06/22/2019 2:38 PM CDT [facility] Blood specimen (specimen) 06/22/2019 1:18 PM CDT 06/22/2019 2:11 PM CDT Janusz Sawyer MD LAB - BLOOD ORDERABL ES [facility] [address] [place] [address] from Last 3 Months or Most Recently Relevant to Health Maintenance Advance Directives For more information, please contact: [phone] * Full Code (Latest Code Status on File) Date Activated Date Inactivated Comments 06/22/2019 6:40 PM 06/25/2019 2:42 PM Question Answer Comments Code status determined by: Discussion with patie nt/legal decision maker * Full Code Date Activated Date Inactivated Comments 09/15/2016 5:21 PM 09/20/2016 2:07 PM * Full Code Date Activated Date Inactivated Comments 08/05/2016 12:54 AM 08/09/2016 1:02 PM * Full Code Date Activated Date Inactivated Comments 12/03/2014 4:39 PM 12/08/2014 3:55 PM * Full Code Date Activated Date Inactivated Comments 12/03/2014 2:31 PM 12/03/2014 4:39 PM Care Teams Lamination Spinner Relationship Specialty Start Date End Date Medical [place], [facility] [place] [address] PCP - General 08/04/16 Aleta Mario NP [address] [facility] [address] Assigned PCP 07/27/22
--- OUTSIDE RECORDS SUMMARY | 2024-05-09 01:07 | XMS_ITS | Encounter Summary ---
Author Organization [place] Address [facility] [place] [address] Care Team Providers Care Paper Control Clerk Name Role Phone [facility], [facility] Primary Care Provider Aleta Mario SERVICE CENTER MANAGER Unavailable [phone] Aleta Mario SERVICE CENTER MANAGER Unavailable [phone] Reason for Visit * Reason Comments Medication Refill Encounter Details Date Type Department Care Team (Late st Contact Info) Description 06/20/2021 Refill [facility] [address] [place] [address] Deon Rodriguez MD [address] [place], [place] [address] Medication Refill Social History Tobacco Use Types Packs/Day Years [...] encounter Miscellaneous Notes * Telephone Encounter - Raiza Smith RN - 06/22/2021 11:26 AM CDT Second phone call attempt made to reach pt. Pt did not answer call. Unable to LVM. Pt has not read or responded to [employer] message at present. * Telephone Encounter - Raiza Smith RN - 06/21/2021 2:[address] Rodriguez's last visit notes, from 05/12/21, below: Anxiety, PTSD, insomnia - Nightmares and sleep trouble persisting. Doxepin 10mg caused excessive drowsiness. Will attempt lower dose to cut down on SE - Continue hydroxyzine at night PRN - Mood stable, no concerns ?? Attempted to reach pt via phone call to assess how he is tolerating lowered dose of Doxepin. Pt didnot answer phone call. Unable to LVM. [employer] message sent. documented in this encounter Plan of Treatment Not on file documented as of this encounter Visit Diagnoses Diagnosis Insomnia, unspecified type documented in this encounter Additional Health Concerns Assessment Noted Time PHQ-9 Depression Total Score: 0 11/02/19 1:34 PM TAVERN CAR ATTENDANT documented as of this encounter Care Teams Paper Control Clerk Relationship Specialty Start Date End Date [facility], [facility] [place], [place] [address] PCP - General 08/04/16 Aleta Mario NP [address] [place] [address] [place] [id number] Assigned PCP 07/27/22 [place] [address] [place] [address] [place] EPPS [id number] Assigned Pain Medication Provider 09/25/22 03/16/23 documented as of this encounter
--- OUTSIDE RECORDS SUMMARY | 2024-05-09 01:07 | XMS_ITS | Encounter Summary ---
Author Organization [place] Address [facility] [place] [address] Care Team Providers Care Buyer Broker Name Role Phone [facility], [facility] Primary Care Provider Aleta Mario VALUE STREAM LEADER Unavailable [phone] Aleta Mario VALUE STREAM LEADER Unavailable [phone] Encounter Details Date Type Department Care Team (Late st Contact Info) Description 03/04/2020 [facility] [address] [place] [address] [address] [place] [address] Deon Rodriguez MD [address] [place] [address] [address] [place], [place] [id number] Social History Tobacco Use Types Packs/Day Years [...] have Coronavirus / COVID-19? No / Unsure 03/03/2020 10:51 AM CDT documented as of this encounter Plan of Treatment Not on file documented as of this encounter Visit Diagnoses Not on filedocumented in this encounter Additional Health Concerns Infection Onset Date Last Indicated Resolved Time Rule Out COVID-19 08/04/2020 08/04/2020 08/05/2020 5:31 PM CORPORATE OPERATIONS COMPLIANCE MANAGER COVID-19 08/04/2020 08/04/2020 08/25/2020 11:4 1 PM CORPORATE OPERATIONS COMPLIANCE MANAGER documented as of this encounter Care Teams Buyer Broker Relationship Specialty Start Date End Date [facility], [facility] [address] [place] [address] PCP - General 08/04/16 Aleta Mario NP [address] [place] [address] [place] EPPS [id number] Assigned PCP 07/27/22 Aleta Mario NP [address] [facility] [place] [address] Assigned Pain Medication Provider 09/25/22 03/16/23 documented as of this encounter
--- OUTSIDE RECORDS SUMMARY | 2024-05-09 01:07 | XMS_ITS | Clinical Summary ---
Author Organization [place] Address [address] [place] [address] Care Team Providers Care Yard Hostler Name Role Phone [facility] Primary Care Provider Aleta Mario VULCAN CREWMEMBER Unavailable [phone] Allergies Active Allergy Reactions Criticality Noted Date Comments Mkmvhtuks-Ziv-Ke-Apap Rash Low 05/29/2013 Medications Medication Sig Dispensed Refills Start Date End Date Status nicotine polacrilex (NICORETTE) 4 MG gumIndications:Toba asset accountant dependence syndrome Place 1 each (4 mg) inside cheek as needed for smoking cessation 110 tablet 11 09/01/2020 Active fluticasone (FLONASE) 50 MCG/ACT nasal sprayIndications:Se asonal allergic rhinitis, unspecified trigger [place] 1 spray into both nostrils daily 16 [...] PTSD Medical complications: none Housing: Stable in [facility] Capital: girlfriend 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 Girlfriend Arin Tx history Total of about 5 treatments, most recently at [place] in 2018. Started @ after detox, 06/27/19 [...] Due Influenza Vaccine >6 months,guevara, PF 06/25/2019 Family History Medical History Relation Comments Substance Abuse Brother Alcoholism Father never diagnosed Relation Status Comments Brother Father Social History Tobacco Use Types Packs/Day Years [...] 03/06/2022 2:55 PM CDT Plan of Treatment Health Maintenance Due Date Last Done Comments ADVANCE CARE PLANNING 1980 YEARLY PREVENTIVE VISIT 1980 HEPATITIS A IMMUNIZATION (1 of 2 - Risk 2-dose series) 1999 HEPATITIS B IMMUNIZATION (1 of 3 - 19+ 3-dose series) 1999 DTAP/TDAP/TD IMMUNIZATION (1 - Tdap) 07/04/2006 07/03/2006 Pneumococcal Vaccine: Pediatrics (0 to 5 Years) and At-Risk Patients (6 to 64 Years) (2 of 2 - PCV) 03/01/2013 03/01/2012 LIPID 2020 GLUCOSE 06/22/2022 06/22/2019, 0109/2016, 08/08/2016, Additional history exists ANNUAL REVIEW OF HM ORDERS 12/23/2022 12/23/2021 COVID-19 Vaccine ( season) 2023 05/13/2021 PHQ-2 (once per calendar year) 2023 03/06/2022, 03/06/2022, 12/23/2021, Additional history exists INFLUENZA VACCINE (#1) 2024 06/25/2019, 2011 HIV SCREENING Completed 06/23/2019, 09/2016, 04/08/2014 HEPATITIS C SCREENING Completed 07/03/2019 , 06/23/2019, 04/10/2014, Additional history exists HPV IMMUNIZATION Aged Out No longer e ligible based on patient's age to complete this topic IPV IMMUNIZATION Aged Out No longer e ligible based on patient's age to complete this topic MENINGITIS IMMUNIZATION Aged Out No l onger eligible based on patient's age to complete this topic RSV MONOCLONAL ANTIBODY Aged Out No l onger eligible based on patient's age to complete this topic Procedures Procedure Name Priority Date/Time Associated Diagnosis [...] Rodriguez MD LAB - BLOOD ORDERAB LES INFECTIOUS DISEASES [facility] [address] * HIV Antigen Antibody Combo (06/23/2019 8:47 AM CDT) HIV Antigen Antibody Combo Nonreactive NR^Nonrea ctive 06/23/2019 1:01 PM CDT [facility] Comment:HIV-1 p24 Ag & HIV-1 /HIV-2 Ab Not Detected Blood specimen (specimen) 06/23/2019 8:47 AM CDT 06/23/2019 8:48 AM CDT Bryant Koroma MD LAB - BLOOD ORDERABL ES Performing Organization Address [facility]/ZIP Co de Phone Number [facility] [address] [place] [address] * (ABNORMAL) Comprehensive metabolic panel (06/22/2019 1:18 PM CDT) Sodium 141 133 - 144 mmol/L 06/22/2019 2:28 PM CDT [facility] Potassium 3.6 3.4 - 5.3 mmol/L 06/22/2019 2:28 PM CDT [facility] Chloride 105 94 - 109 mmol/L 06/22/2019 2:28 PM CDT [facility] Carbon Dioxide 27 20 - 32 mmol/L 06/22/2019 2:35 PM CDT [facility] Anion Gap 9 3 - 14 mmol/L 06/22/2019 2:35 PM CDT [facility] Glucose 147(H) 70 - 99 mg/dL 06/22/2019 2:35 PM CDT [facility] Urea Nitrogen 16 7 - 30 mg/dL 06/22/2019 2:35 PM CDT [facility] Creatinine 0.98 0.66 - 1.25 mg/dL 06/22/2019 2:35 PM CDT [facility] GFR Estimate >90 >60 mL/min/{1 .73_m2} 06/22/2019 2:35 PM CDT [facility] Comment: Non GFR Calc Starting 09/03/2018, serum creatinine based estimated GFR (eGFR) will be calculated using the Chronic Kidney Disease Epidemiology Collaboration (CKD-EPI) equation. GFR Estimate If Black >90 >60 mL/min/{1 .73_m2} 06/22/2019 2:35 PM CDT [facility] Comment: GFR Calc Starting 09/03/2018, serum creatinine based estimated GFR (eGFR) will be calculated using the Chronic Kidney Disease Epidemiology Collaboration (CKD-EPI) equation. Calcium 9.2 8.5 - 10.1 mg/dL 06/22/2019 2:35 PM CDT [facility] Bilirubin Total 0.7 0.2 - 1.3 mg/dL 06/22/2019 2:38 PM CDT [facility] Albumin 4.3 3.4 - 5.0 g/dL 06/22/2019 2:38 PM CDT [facility] Protein Total 8.6 6.8 - 8.8 g/dL 06/22/2019 2:38 PM CDT [facility] Alkaline Phosphatase 78 40 - 150 U/L 06/22/2019 2:38 PM CDT [facility] ALT 16 0 - 70 U/L 06/22/2019 2:38 PM CDT [facility] AST 11 0 - 45 U/L 06/22/2019 2:38 PM T [facility] Blood specimen (specimen) 06/22/2019 1:18 PM CDT 06/22/2019 2:11 PM CDT Janusz Sawyer MD LAB - BLOOD ORDERABL ES [facility] [address] [place] [address] from Last 3 Months or Most Recently Relevant to Health Maintenance Advance Directives For more information, please contact: [phone] * Full Code (Latest Code Status on File) Date Activated Date Inactivated Comments 06/22/2019 6:40 PM 06/25/2019 2:42 PM Question Answer Comments Code status determined by: Discussion with keri headley/legal decision maker * Full Code Date Activated Date Inactivated Comments 09/15/2016 5:21 PM 09/20/2016 2:07 PM * Full Code Date Activated Date Inactivated Comments 08/05/2016 12:54 AM 08/09/2016 1:02 PM * Full Code Date Activated Date Inactivated Comments 12/03/2014 4:39 PM 12/08/2014 3:55 PM * Full Code Date Activated Date Inactivated Comments 12/03/2014 2:31 PM 12/03/2014 4:39 PM Care Teams Yard Hostler Relationship Specialty Start Date End Date [facility] [address] [place] [address] PCP - General 08/04/16 Aleta Mario NP [address] [place] [address] [place] EPPS [id number] Assigned PCP 07/27/22
--- OUTSIDE RECORDS SUMMARY | 2024-05-09 01:07 | XMS_ITS | Encounter Summary ---
Author Organization [place] Address [address] [place] [address] Care Team Providers Care Piece Worker Name Role Phone [facility], [facility] Primary Care Provider Aleta Mario QUALITY MANAGEMENT NURSE Unavailable [phone] Aleta Mario QUALITY MANAGEMENT NURSE Unavailable [phone] Encounter Details Date Type Department Care Team ([facility] st Contact Info) Description 09/14/2022 [facility] Adv[facility] [place] [address] [place] [address] [address] [place] [address] Gabbi Kuhn Social History Tobacco [...] documented as of this encounter Care Teams Piece Worker Relationship Specialty Start Date End Date [facility], [facility] [address] [place], [place] [id number] PCP - General 08/04/16 Aleta Mario NP [address] [facility] [place] [address] Assigned PCP 07/27/22 Aleta Mario NP [address] [facility] [place] [address] Assigned Pain Medication Provider 09/25/22 03/16/23 documented as of this encounter
--- OUTSIDE RECORDS SUMMARY | 2024-05-09 01:08 | XMS_ITS | Encounter Summary ---
Author Organization [place] Address [address] [place] [address] Care Team Providers Care Financial Systems Administrator Name Role Phone [facility] Primary Care Provider Aleta Mario GRINDER TENDER Unavailable [phone] Aleta Mario GRINDER TENDER Unavailable [phone] Reason for Visit * Reason Onset Date Comments MH/CD Inpatient 08/04/2016 Encounter Details Date Type Department Care Team ([facility] Contact Info) Description 08/04/2016 Telephone [facility] Behavioral Health Intake [address] [place] [address] Generic, Behavioral Intake, MH/CD Inpatient Social History Tobacco Use Types Packs/Day Years Used Date Smoking Tobacco: Every Day Cigarettes Alcohol Use Standard Drinks/Week Comments Yes 0 (1 standard drink = 0.6 oz pur e alcohol) rarely Sex and Gender Information Value Date Recorded Sex Assigned at Not on file Gender Identity Not on file Sexual Orientation Not on file documented as of this encounter Miscellaneous Notes * Telephone Encounter - Valeriy Frazier - 08/04/2016 9:48 PM DOLL WIGS HACKLER S - Dr. Lyles with [facility] ED calling with clinical on a possible CD Detox admit B - 35/M presenting to ED seeking Detox from IV heroin , uses 1/2 gram daily for the past 4 months,ASHLEE this morning. Pt.came to detox a year ago. Denies SI HI, currently not experiencing WD sxs no hxof seizures A - VOL , hx of HEP C, medically cleared in ED, U tox pending (denies any other drug use) R - admit to 3a / JULIANNA / dr. Sepulveda WIGS HACKLER documented in this encounter Plan of Treatment Not on file documented as of this encounter Visit Diagnoses Not on filedocumented in this encounter Additional Health Concerns Infection Onset Date Last Indicated Resolved Time Rule Out COVID-19 08/04/2020 08/04/2020 08/05/2020 5:31 PM DOLL WIGS HACKLER COVID-19 08/04/2020 08/04/2020 08/25/2020 11:4 1 PM DOLL WIGS HACKLER documented as of this encounter Care Teams Financial Systems Administrator Relationship Specialty Start Date End Date [facility], [facility] [address] [place], [place] [address] PCP - General 08/04/16 Aleta Mario NP [address] [facility] [place] [address] Assigned PCP 07/27/22 Aleta Mario NP [address] [facility] [place] [address] Assigned Pain Medication Provider 09/25/22 03/16/23 documented as of this encounter
--- OUTSIDE RECORDS SUMMARY | 2024-05-09 01:08 | XMS_ITS | Encounter Summary ---
Author Organization [place] Address [address] [place] [address] Care Team Providers Care Centrifugal Operator Name Role Phone No Ref-Primary, Physician Primary Care Provider [facility], [facility] Primary Care Provider Aleta Mario BOSS MINER Unavailable [phone] Aleta Mario BOSS MINER Unavailable [phone] Reason for Visit * Reason Onset Date Comments CD Outpatient 06/05/2013 lodging Encounter Details Date Type Department Care Team ([facility] st Contact Info) Description 06/05/2013 Telephone [facility] Behavioral Health Intake [address] [place] [address] Generic, Behavioral IntakeMD CD Outpatient (lodging ) Social History Tobacco Use Types Packs/Day Years Used Date Smoking Tobacco: Never Assessed Sex and Gender Information Value Date Recorded Sex Assigned at Not on file Gender Identity Not on file Sexual Orientation Not on file documented as of this encounter Miscellaneous Notes * Telephone Encounter - Morales Harris - 06/05/2013 3:43 PM CDT Upd, Per kelli she has made multiple calls to [facility] for resolve of CPA. If CPA should arrive inOP Intake today, Pt is ready to move. Pt cannot move until hard copy CPA in this office. Kelli does understand. * Telephone Encounter - Dario Avila - 06/05/2013 1:41 PM CDT Per kelli 3a we are waiting on [facility] for rule 25/cpa * Telephone Encounter - Morales Harris - 06/05/2013 10:27 AM CDT Pt on 3afh, Ref to lodging, r25 funding is pending. Bed held (excessive avail beds) pending fundingapproval. Kelli h [id number] will update intake accordingly. documented in this encounter Plan of Treatment Not on file documented as of this encounter Visit Diagnoses Not on filedocumented in this encounter Additional Health Concerns Infection Onset Date Last Indicated Resolved Time Rule Out COVID-08/04/2020 08/04/2020 08/05/2020 5:31 PM SENIOR BENEFITS MANAGER COVID-08/04/2020 08/04/2020 08/25/2020 11:4 1 PM SENIOR BENEFITS MANAGER documented as of this encounter Care Teams Centrifugal Operator Relationship Specialty Start Date End Date No Ref-Primary, Physician PCP - General 05/29/13 08/03/16 [facility] [place] [address] PCP - General 08/04/16 Aleta Mario NP [address] [facility] [place] [address] Assigned PCP 07/27/22 Aleta Mario NP [address] [facility] [place] [address] Assigned Pain Medication Provider 09/25/22 03/16/23 documented as of this encounter
--- OUTSIDE RECORDS SUMMARY | 2024-05-09 01:08 | XMS_ITS | Encounter Summary ---
Author Organization [place] Address [address] [place] [address] Care Team Providers Care Business Continuity Analyst Name Role Phone No Ref-Primary, Physician Primary Care Provider [facility], [facility] Primary Care Provider Aleta Mario INFORMATION SECURITY SPECIALIST Unavailable [phone] Aleta Mario INFORMATION SECURITY SPECIALIST Unavailable [phone] Reason for Visit * Reason Comments Other Encounter Details Date Type Department Care Team ([facility] st Contact Info) Description 12/07/2014 Telephone [facility] Behavioral Health Intake [address] [place] [phone] Generic, Behavioral IntakeMD Social History Tobacco Use Types Packs/Day Years [...] encounter Miscellaneous Notes * Telephone Encounter - Mary Crain - 12/28/2014 9:03 AM CDT 12-28-14 I scheduled requested days, and sent message back stating these days are not auth'd. fb * Telephone Encounter - Mary Crain - 12/28/2014 8:59 AM CDT ----- Message from ELICIA Crowell sent at 12/27/2014 10:05 AM CDT ----- Regarding: Schedule additional sessions Please schedule 6 additional sessions for the above pt beginning on 12/29/14. Thanks. Chase * Telephone Encounter - Bryant Staples - 12/08/2014 2:01 PM CDT ----- Message from Evelyn Guadarrama sent at 12/08/2014 12:23 PM CDT ----- cpa received. Ok for lplus * Telephone Encounter - Bryant Staples - 12/08/2014 1:17 PM CDT ----- Message from Sonya Vera sent at 12/08/2014 11:39 AM CDT ----- Regarding: CPA Received CPA from [facility] received and faxed to OP Intake. * Telephone Encounter - Arjun Hernandez - 12/08/2014 12:28 PM CDT L+ bed available, pt will transfer from 3a at 2:00. * Telephone Encounter - Yuliana Yates - 12/08/2014 10:58 AM CDT ----- Message from Sonya Vera sent at 12/08/2014 10:47 AM CDT ----- Regarding: Transfer to Complex Human Resources Manager called Rey Romero of [facility] Rule 25 ([phone]) who states he faxed the CPA to OP Intake ( ) earlier this morning. He is going to refax to OP Intake and also fax to 3A detox. Complex Human Resources Manager will be watching for it and fax to OP Intake from here. * Telephone Encounter - Yuliana Yates - 12/08/2014 9:00 AM CDT ----- Message from Evelyn Guadarrama sent at 12/08/2014 8:34 AM CDT ----- Regarding: RE: Transfer today to [facility] pending receipt of R25 funding and available bed. Nothing noted yet. Made a note about your information ----- Message ----- From: Sonya Vera Sent: 12/08/2014 7:52 AM To: [facility] Outpatient Intake Subject: Transfer today to [facility] pending recei# Voicemail received from Rey Romero of [facility] 25 this morning stating patient has been approved for [facility]odging [facility] and he will notify outpatient intake. LP Team: C * Telephone Encounter - Yuliana Yates - 12/08/2014 8:59 AM CDT Will need CPA in place [facility]. Yuliana Yates * Telephone Encounter - Yuliana Yates - 12/08/2014 8:59 AM CDT ----- Message from Sonya Vera sent at 12/08/2014 7:52 AM CDT ----- Regarding: Transfer today to [facility] pending receipt of R25 funding and available bed. Voicemail received from Rey Romero of [facility] Rule 25 this morning stating patient has been approved for [facility]odging [facility] and he will notify outpatient intake. LP Team: C * Telephone Encounter - Duc Kearney - 12/07/2014 11:22 AM CDT ----- Message from Evelyn Guadarrama sent at 12/07/2014 9:27 AM CDT ----- Pending R25 approval for lplus documented in this encounter Plan of Treatment Not on file documented as of this encounter Visit Diagnoses Not on filedocumented in this encounter Additional Health Concerns Infection Onset Date Last Indicated Resolved Time Rule Out COVID-19 08/04/2020 08/04/2020 08/05/2020 5:31 PM ROVING SIZER COVID-19 08/04/2020 08/04/2020 08/25/2020 11:4 1 PM ROVING SIZER documented as of this encounter Care Teams Business Continuity Analyst Relationship Specialty Start Date End Date No Ref-Primary, Physician PCP - General 05/29/13 08/03/16 [facility], [facility] [address] PCP - General 08/04/16 Aleta Mario NP [address] [facility] [place] [address] Assigned PCP 07/27/22 Aleta Mario NP [address] [facility] [place] [address] Assigned Pain Medication Provider 09/25/22 03/16/23 documented as of this encounter
--- OUTSIDE RECORDS SUMMARY | 2024-05-09 01:08 | XMS_ITS | Encounter Summary ---
Author Organization [facility] Address [address] [place] [address] Care Team Providers Care Assistant Office Manager Name Role Phone [facility] Primary Care Provider Aleta Mario POWER GENERATION PLANT OPERATOR Unavailable [phone] Aleta Mario POWER GENERATION PLANT OPERATOR Unavailable [phone] Reason for Visit * Reason Onset Date Comments MH/CD Inpatient 09/15/2016 The pt was broug ht to the ED by his girlfriend due to IV heroin use Other Encounter Details Date Type Department Care Team ([facility] st Contact Info) Description 09/15/2016 Telephone [facility] Behavioral Health Intake [address] [place] [phone] Generic, Behavioral Intake, MH/CD Inpatient (The pt was brought to the ED by his girlfriend due to IV heroin use); Social History Tobacco Use Types Packs/Day Years [...] encounter Miscellaneous Notes * Telephone Encounter - Janette Layton - 2016 10:34 AM CST ----- Message from ROBERTO Andres sent at 2016 10:18 AM LEASING SPECIALIST ----- Regarding: Add Pt to LP Wait List Please add the above name pt to the LP+ Wait List with 3A priority status. Pt should also have IV use priority. Pt requires [facility] funding. Pt will be going to the [facility] or Mixed [facility] in [facility]. Thad Allen ING SPECIALIST * Telephone Encounter - Margarita Da Silvat - 09/15/2016 3:05 PM CST S: The pt was brought to the ED by his girlfriend due to IV heroin use B: The pt has been using 1/2 gram of IV heroin daily since discharge from detox. There was a problem with authorization for Suboxone prescription by insurance at discharge and he immediately relapsed. The pt wants to go to [facility] after discharge and feels this was a mistake not going to treatment after completing detox the last time. A: Pt uses 1/2 mg daily, last use was at 11am today. He is voluntary. R: Admit to station 3a detox under the care of Dr Sepulveda. (Iris Da Silva) ING SPECIALIST documented in this encounter Plan of Treatment Not on file documented as of this encounter Visit Diagnoses Not on filedocumented in this encounter Additional Health Concerns Infection Onset Date Last Indicated Resolved Time Rule Out COVID-19 08/04/2020 08/04/2020 08/05/2020 5:31 PM LEASING SPECIALIST COVID-19 08/04/2020 08/04/2020 08/25/2020 11:4 1 PM LEASING SPECIALIST documented as of this encounter Care Teams Assistant Office Manager Relationship Specialty Start Date End Date [facility] [place] [address] PCP - General 08/04/16 Aleta Mario NP [address] [place] [address] [place] [id number] Assigned PCP 07/27/22 Aleta Mario NP [address] [place] [address] [place] [id number] Assigned Pain Medication Provider 09/25/22 03/16/23 documented as of this encounter
--- OUTSIDE RECORDS SUMMARY | 2024-05-09 01:08 | XMS_ITS | Encounter Summary ---
Author Organization [facility] Address [address] [place] [address] Care Team Providers Care Fire Sprinkler Inspector Name Role Phone No Ref-Primary, Physician Primary Care Provider [facility], [facility] Primary Care Provider Aleta Mario NP Unavailable [phone] Aleta Mario ROOF BOLTER HELPER Unavailable [phone] Encounter Details Date Type Department Care Team ([facility] st Contact Info) Description 04/07/2014 Telephone [facility] Behavioral Health Intake [address] [place] [phone] Generic, Behavioral Intake, Social History Tobacco Use Types Packs/Day Years [...] encounter Miscellaneous Notes * Telephone Encounter - Keri Smith - 04/07/2014 12:32 PM CDT S-Pt presents at ED seeking detox from heroin. B-Pt is using 0.5 - 1 gram IV heroin daily. Last use 0300. He also uses cocaine. Last use 2 days ago. No MH, no SI, no meds. No medical issues. A-Admit for detox. R-Dr Gonzales accepted care / admit to 4A for DETOX. Keri Smith documented in this encounter Plan of Treatment Not on file documented as of this encounter Visit Diagnoses Not on filedocumented in this encounter Additional Health Concerns Infection Onset Date Last Indicated Resolved Time Rule Out COVID-19 08/04/2020 08/04/2020 08/05/2020 5:31 PM ACCOUNTING CLERK COVID-19 08/04/2020 08/04/2020 08/25/2020 11:4 1 PM ACCOUNTING CLERK documented as of this encounter Care Teams Fire Sprinkler Inspector Relationship Specialty Start Date End Date No Ref-Primary, Physician PCP - General 05/29/13 08/03/16 [facility], [facility] [address] [place] [address] PCP - General 08/04/16 Aleta Mario NP [address] [facility] [place] [id number] Assigned PCP 07/27/22 Aleta Mario NP [address] [facility] [place] [id number] Assigned Pain Medication Provider 09/25/22 03/16/23 documented as of this encounter
--- OUTSIDE RECORDS SUMMARY | 2024-05-09 01:08 | XMS_ITS | Encounter Summary ---
Author Organization [facility] Address [address] [place] [address] Care Team Providers Care Orthopedic Physician Name Role Phone [facility] Primary Care Provider Aleta Mario DATA CAPTURE SPECIALIST Unavailable [phone] Aleta Mario DATA CAPTURE SPECIALIST Unavailable [phone] Reason for Visit * Reason Onset Date Comments CD Outpatient 2016 L+ Encounter Details Date Type Department Care Team ([facility] st Contact Info) Description 2016 Telephone [facility] Behavioral Health Intake [address] [place] [phone] Generic, Behavioral Intake, CD Outpatient (L+) Social History Tobacco Use Types Packs/Day Years [...] ROBERTO Andres sent at 2016 10:18 AM PERLITE GRINDER ----- Regarding: Add Pt to LP Wait List Please add the above name pt to the LP+ Wait List with 3A priority status. Pt should also have IV use priority. Pt requires [facility] funding. Pt will be going to the [facility] or Mixed Group in [facility] [employer]. Tiffany, Thad ITE GRINDER documented in this encounter Plan of Treatment Not on file documented as of this encounter Visit Diagnoses Not on filedocumented in this encounter Additional Health Concerns Infection Onset Date Last Indicated Resolved Time Rule Out COVID-19 08/04/2020 08/04/2020 08/05/2020 5:31 PM PERLITE GRINDER COVID-19 08/04/2020 08/04/2020 08/25/2020 11:4 1 PM PERLITE GRINDER documented as of this encounter Care Teams Orthopedic Physician Relationship Specialty Start Date End Date [facility], [facility] [address] [place] [address] PCP - General 08/04/16 Aleta Mario NP [address] [place] [address] [place] [id number] Assigned PCP 07/27/22 Aleta Mario NP [address] [place] [address] [place] EP[place] [id number] Assigned Pain Medication Provider 09/25/22 03/16/23 documented as of this encounter
--- OUTSIDE RECORDS SUMMARY | 2024-05-09 01:08 | XMS_ITS | Encounter Summary ---
Author Organization [facility] Address [address] [place] [address] Care Team Providers Care Superintendent Drivers Name Role Phone No Ref-Primary, Physician Primary Care Provider [facility], [facility] Primary Care Provider Aleta Mario WATERSHED PROGRAM MANAGER Unavailable [phone] Aleta Mario WATERSHED PROGRAM MANAGER Unavailable [phone] Reason for Visit * Reason Comments Other Encounter Details Date Type Department Care Team ([facility] st Contact Info) Description 12/03/2014 Telephone [facility] Behavioral Health Intake [address] [place] [phone] Generic, Behavioral IntakeMD Social History Tobacco [...] encounter Miscellaneous Notes * Telephone Encounter - Duc Kearney - 12/07/2014 11:21 AM CDT ----- Message from Evelyn Guadarrama sent at 12/07/2014 9:27 AM CDT ----- Pending R25 approval for lplus * Telephone Encounter - Keri Smith - 12/03/2014 9:51 AM CDT S-Pt presents at ED seeking detox from heroin. B-He is using 1/2 gram IV daily. Last use last night. He has needle tracks on his arm. U tox negative. Pt was in ED on 11/25 with his GF looking for detox. She got in but he was unable to secure a bed. He would like detox today. Hx w/Dr Gonzales in March 2014. No MH or SI. Voluntary. A-Admit for detox. R-Dr Gonzales accepted care / admit to 3A. 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
[2024-05-09 01:47] LABS: Lactate Sepsis 2 Hour 0.9 mmol/L (0.5-1.9)
--- NOTE | 2024-05-09 02:35 | W.PM.TELEH&P ---
Telehealth- H&P: HPI History of Present Illness Date Seen: 05/09/24 Chief complaint: eye and leg infection Narrative: Robin Herrera is seen as an Interactive Telehealth visit. Robin Herrera is a 43 year old male who is Seen in his hospital room at [facility]. He has been admitted through the emergency room. He is admitted with the assistance of nursing staff. He tells me about 7 days ago he started noticing erythematous area that was slightly raised. He tried squeezing some fluid out of it. 5 days later he noticed some painful swelling around his right eye. And then over the last couple days around his left index finger. These were increasingly painful. He came in to be evaluated. He was felt to have multifocal skin infection and cellulitis. He did have a CT scan of his face there does not seem to be any underlying abscess. He has been placed on broad-spectrum antibiotics and has been admitted below. He denies other systemic symptoms. He tells me he is generally otherwise healthy. Review of Systems Narrative: A complete Review of ystems was performed, pertinent positives and negatives in the history of present illness Meds Home Medications and Allergies Home Medications ?Medication ?Instructions ?Recorded ?Confirmed ?Type No Known Home Medications 05/08/24 05/08/24 History Allergies Allergy/AdvReac Type Severity Reaction Status Date / Time dextromethorphan Allergy Mild Hives Verified 05/08/24 23:20 [From Dimetapp Cold-Congestion] diphenhydramine Allergy Mild Hives Verified 05/08/24 23:20 [From Dimetapp Cold-Congestion] guaifenesin Allergy Mild Hives Verified 05/08/24 23:20 [From Dimetapp Cold-Congestion] phenylephrine Allergy Mild Hives Verified 05/08/24 23:20 [From Dimetapp Cold-Congestion] pseudoephedrine Allergy Mild Hives Verified 05/08/24 23:20 [From Dimetapp Cold-Congestion] Exam Narrative Exam Narrative: Physical Exam GENERAL: ?vital signs reviewed, well developed and nourished, in no distress HEENT: pupils are equal round and reactive to light, extraocular movements are grossly within normal limits and oral mucosa is moist.Erythema and swelling around his right eye does not seem to affect his eyeball. NECK: Supple without lymphadenopathy or thyromegaly according to nursing staff examination observation HEART: Regular rate and rhythm without any rubs, murmurs, or gallops. LUNGS: Clear to auscultation bilaterally with good air movement throughout ABDOMEN: Observation from nurse assisted exam, abdomen appears soft, nontender, and nondistended with Positive bowel sounds noted. EXTREMITIES: Strength and sensation is observed to be grossly within normal limits in the upper and lower extremities.? No focal strength deficit is observed.Swelling on his left leg as well as left middle finger erythematous warm tender to touch appears to look like staph SKIN:? Observed warm and dry with color normal Const Vital Signs, click to edit/add: Vital Signs - 24 hr 05/08/24 23:16 Temperature 99.0 F Pulse Rate [Left Pulse Oximeter] 129 H Respiratory Rate 18 Blood Pressure [Right Upper Arm] 160/101 H Pulse Oximetry 98 Oxygen Delivery Method Room Air Hospitalist - H&P: Result Labs Labs: Short CBC 05/08/24 Range/Units 23:30 WBC 12.32 H (4.50-11.00) K/uL Hgb 14.5 (13.5-17.5) gm/dL Hct 43.0 (37.0-53.0) % Plt Count 332 (140-440) K/uL BMP 05/08/24 23:30 Sodium 139 Potassium 3.4 L Chloride 104 Carbon Dioxide 23 BUN 11 Creatinine 0.6 Glucose 187 H Calcium 9.9 Assessment and Plan Assessment and plan (1) Cellulitis: Status: Acute (2) Sepsis: Status: Acute (3) Nicotine abuse: Status: Acute Plan Cellulitis/sepsis?patient has 3 different locations of cellulitis is seems somewhat odd. I am very concerned that this is an embolic event possible endocarditis, possible IV drug use. Seems very unlikely for him to have 3 different episodes of spontaneous cellulitis. It does appear to be a staph just because of the angriness and swelling. I did talk about a CT scan for his leg this evening to rule out an underlying abscess. He would like to wait till morning to see how he responds to antibiotics which is not unreasonable as he does not look toxic. With the concern about embolic event I do think it warrants at the minimum a transthoracic echo. Consideration should be strongly given to infectious disease consultation for duration of antibiotics. Meantime we will treat him as a possible or borderline periorbital cellulitis vancomycin and Zosyn. Pain control with hydromorphone, oxycodone, Tylenol. Ongoing nicotine abuse patient declined the need for nicotine patch DVT prophylaxis will not be started as anticipate him up ambulatory. CODE STATUS was reviewed on admission he wishes to be a full code. Telehealth: Statement Statement Telehealth Visit: Today's History and Physical is provided via interactive telehealth by Doroteo Paz DO.? Patient is located at [facility].? Provider is located at [facility].? Nursing staff assisted with the patient's exam. The visit being done today meets criteria for a telehealth visit and the patient or patient?s parent/guardian is aware the visit is a telehealth visit. Camera Start Time: 02:08 Camera End Time: 02:25
[2024-05-09] MEDS: OXYCODONE 5 MG TABLET PO ×5 (02:53→19:40)
[2024-05-09] MEDS: MELATONIN 3 MG TABLET PO ×2 (02:54→20:55)
[2024-05-09] MEDS: LORazepam 2 MG/ML inj 0.5 MG IVP (03:49)
[2024-05-09] MEDS: SODIUM CHLORIDE 0.9 % (FLUSH) 10 ML SYRINGE 5 ML IVF ×5 (03:50→22:31)
--- NOTE | 2024-05-09 07:53 | PC.NURSE ---
END OF SHIFT NOTE: PT A&Ox4. DENIES CP, SOB, N/V. AMBULATES INDEPENDENTLY WITHIN ROOM. VSS ON RA; AFEBRILE. RIGHT PERIORBITAL AREA, LEFT HAND- 3RD DIGIT AND LEFT POSTERIOR THIGH WITH ERYTHEMA, EDEMATOUS, TENDER TO TOUCH AND SKIN HOT TO TOUCH. ALL AREAS OF CONCERN HAVE BEEN CIRCLED. PAIN TO AREAS RANGE 4-10/10. PT IS CURRENT SMOKER; DECLINED NICOTINE PATCH. CALL LIGHT WITHIN PT?S REACH.?
[2024-05-09] MEDS: ACETAMINOPHEN 325 MG TABLET PO ×3 (08:09→20:55)
[2024-05-09] MEDS: PIPERACILLIN/TAZOBACTAM 4.5 GM in 0.9 % SODIUM CHLORIDE Mini-bag 100 ML IVPB ×3 (08:12→19:42)
[2024-05-09] MEDS: 0.9 % SODIUM CHLORIDE 250 ml IV (08:16)
[2024-05-09 08:39] LABS: Lactate* 1.6 mmol/L (0.5-1.9)
[2024-05-09 08:43] LABS: Basophils Percent Auto 0.3 % (0.0-3.0); Eosinophils Percent Auto 1.4 % (0.0-7.0); Hematocrit 38.4 % (37.0-53.0); Hemoglobin* 12.7 gm/dL (13.5-17.5); Immature Granulocytes Pct Auto 0.2 %; Lymphocytes Percent Auto 14.8 % (20-44); Mean Corpuscular HGB Conc 33 gm/dL (32-36); Mean Corpuscular Hemoglobin 30 pg (26-34); Mean Corpuscular Volume 90 fL (80-100); Monocytes Percent Auto 8.1 % (0.0-11.0); Neutrophils Percent Auto 75.2 % (42.0-72.0); Platelet Count* 289 K/uL (140-440); RDW Coefficient of Variation % 11.8 % (11.5-15.5); Red Blood Count 4.29 m/uL (4.30-5.90); White Blood Count* 11.57 K/uL (4.50-11.00)
[2024-05-09 08:50] LABS: Slide Review Reflex No
[2024-05-09 08:58] LABS: Albumin* 3.7 g/dL (3.3-5.0); Chloride* 108 mmol/L (96-114)
[2024-05-09 08:59] LABS: Potassium* 4.1 mmol/L (3.6-5.1); Sodium* 137 mmol/L (135-149)
[2024-05-09 09:01] LABS: Creatinine* 0.7 mg/dL (0.5-1.5); Est. Creatinine Clearance* 167.06; Estimated Glomerular Filt Rate 117 ml/min
[2024-05-09 09:02] LABS: Alanine Aminotransferase* 15 U/L (4-50); Alkaline Phosphatase* 62 U/L (40-150); Anion Gap 8 mEq/L (7-15); Aspartate Amino Transferase* 20 U/L (12-35); Bilirubin Total* 0.2 mg/dL (0.1-1.5); Blood Urea Nitrogen* 14 mg/dL (5-24); Calcium* 8.7 mg/dL (8.4-10.6); Carbon Dioxide* 21 mmol/L (20-32); Glucose* 127 mg/dL (60-115); Total Protein* 6.8 g/dL (6.0-8.3)
--- NOTE | 2024-05-09 09:08 | P.IMPN_ITS ---
Progress Note: A&P Assessment and plan (1) Sepsis: Problem details: - WBC >12, elevated lactate, purulent wounds - lactate has normalized, WBC trending downward - on Zosyn and Vancomycin (05/08) Status: Acute (2) Cellulitis: Problem details: - three discreet locations: L middle finger, R orbit, L posterior thigh - no evidence of abscess on facial CT - concerning for systemic infection - on Vancomycin and Zosyn (05/08), blood cultures pending - patient endorses h/o IVDU (declines any recent use) - TTE to be done 05/09 Status: Acute (3) Nicotine abuse: Problem details: - prn replacement Status: Acute Plan - per above: continue abx, await culture results - reviewed with ENT, General Surgery, and Orthopedic Surgery; no need for acute surgical intervention at this time Subjective Date Seen: 05/09/24 Interval history: Robin was admitted overnight for cellulitis of his R eyelid, L 3rd finger, and L posterior thigh. Vancomycin and Zosyn initiated, blood cultures obtained and pending, as well as wound culture from L thigh. Exam Narrative: Exam Narrative: GEN: Patient is awake and laying in bed HEENT: Erythema and fluctuant/indurated skin over medial aspect of right eye, extends superiorly and fullycontained in outline that was drawn upon admission. Patient is unable to open right eye secondary to edema. CV: RRR, No concerning murmurs R: LCTA bilaterally without concerning wheezing, air movement adequate MS: L 3rd finger has mild edema/erythema and + ttp, no crepitus. Erythema is fully contained in outline drawn during admission. + discomfort with flexion/extension. Skin: Area of erythema, induration, fluctuance on L posterior thigh. This area is mildly ttp, no crepitus. Wound is draining and erythema is fully contained within borders of outline drawn on admission Neuro: No focal deficits, no resting tremor Psych: Appropriate Const: Vital Signs, click to edit/add: Vital Signs - 24 hr 05/08/24 23:16 05/09/24 01:50 05/09/24 01:50 Temperature 99.0 F 98.4 F Pulse Rate [Left P ulse Oximeter] 129 H Pulse Rate [Pulse Oximeter] 97 Respiratory Rate 18 18 18 Blood Pressure [Ri ght Arm] 145/98 H Blood Pressure [Ri ght Upper Arm] 160/101 H Pulse Oximetry 98 100 100 Oxygen Delivery Me thod Room Air Room Air Room Air 05/09/24 04:40 05/09/24 08:17 Temperature 98.2 F 98.1 F Pulse Rate [Left P ulse Oximeter] Pulse Rate [Pulse Oximeter] 84 86 Respiratory Rate 14 16 Blood Pressure [Ri ght Arm] 143/93 H 171/112 H Blood Pressure [Ri ght Upper Arm] Pulse Oximetry 97 100 Oxygen Delivery Me thod Room Air Room Air Labs Labs: Laboratory Results - last 24 hr 05/08/24 05/09/24 05/09/24 23:30 00:00 01:45 WBC 12.32 H RBC 4.86 Hgb 14.5 Hct 43.0 MCV 89 MCH 30 MCHC 34 RDW Coeff of Smita 11.7 Plt Count 332 Neut % (Auto) 81.5 H Lymph % (Auto) 10.2 L [place] % (Auto) 5.9 Eos % (Auto) 1.2 Baso % (Auto) 0.2 Neut # (Auto) 10.00 H Lymph # (Auto) 1.30 [place] # (Auto) 0.70 Eos # (Auto) 0.10 Baso # (Auto) 0.00 Abs Immat Gran (auto) 0.10 Imm/Tot Granulo (auto) 1.0 ESR 56 H Sodium 139 Potassium 3.4 L Chloride 104 Carbon Dioxide 23 Anion Gap 12 BUN 11 Creatinine 0.6 Estimated Creat Clear 194.90 Estimated GFR 123 Glucose 187 H Lactate 3.2 H 0.9 Calcium 9.9 Total Bilirubin AST ALT Alkaline Phosphatase C-Reactive Protein 2.3 H Total Protein Albumin 05/09/24 05/09/24 05/09/24 08:32 08:32 08:32 WBC 11.57 H RBC 4.29 L Hgb 12.7 L Hct 38.4 MCV 90 MCH 30 MCHC 33 RDW Coeff of Smita 11.8 Plt Count 289 Neut % (Auto) 75.2 H Lymph % (Auto) 14.8 L [place] % (Auto) 8.1 Eos % (Auto) 1.4 Baso % (Auto) 0.3 Neut # (Auto) 8.70 H Lymph # (Auto) 1.70 [place] # (Auto) 0.90 Eos # (Auto) 0.20 Baso # (Auto) 0.00 Abs Immat Gran (auto) 0.00 Imm/Tot Granulo (auto) 0.2 ESR Sodium Cancelled 137 Potassium Cancelled 4.1 Chloride Cancelled Carbon Dioxide Anion Gap BUN Creatinine Estimated Creat Clear Estimated GFR Glucose Lactate Calcium Total Bilirubin AST ALT Alkaline Phosphatase C-Reactive Protein Total Protein Albumin 05/09/24 05/09/24 05/09/24 08:32 08:32 08:32 WBC RBC Hgb Hct MCV MCH MCHC RDW Coeff of Smita Plt Count Neut % (Auto) Lymph % (Auto) [place] % (Auto) Eos % (Auto) Baso % (Auto) Neut # (Auto) Lymph # (Auto) [place] # (Auto) Eos # (Auto) Baso # (Auto) Abs Immat Gran (auto) Imm/Tot Granulo (auto) ESR Sodium Potassium Chloride 108 Carbon Dioxide Cancelled 21 Anion Gap Cancelled 8 BUN Cancelled Creatinine Estimated Creat Clear Estimated GFR Glucose Lactate Calcium Total Bilirubin AST ALT Alkaline Phosphatase C-Reactive Protein Total Protein Albumin 05/09/24 05/09/24 05/09/24 08:32 08:32 08:32 WBC RBC Hgb Hct MCV MCH MCHC RDW Coeff of Smita Plt Count Neut % (Auto) Lymph % (Auto) [place] % (Auto) Eos % (Auto) Baso % (Auto) Neut # (Auto) Lymph # (Auto) [place] # (Auto) Eos # (Auto) Baso # (Auto) Abs Immat Gran (auto) Imm/Tot Granulo (auto) ESR Sodium Potassium Chloride Carbon Dioxide Anion Gap BUN 14 Creatinine Cancelled 0.7 Estimated Creat Clear Cancelled 167.06 Estimated GFR Cancelled Glucose Lactate Calcium Total Bilirubin AST ALT Alkaline Phosphatase C-Reactive Protein Total Protein Albumin 05/09/24 05/09/24 05/09/24 08:32 08:32 08:32 WBC RBC Hgb Hct MCV MCH MCHC RDW Coeff of Smita Plt Count Neut % (Auto) Lymph % (Auto) [place] % (Auto) Eos % (Auto) Baso % (Auto) Neut # (Auto) Lymph # (Auto) [place] # (Auto) Eos # (Auto) Baso # (Auto) Abs Immat Gran (auto) Imm/Tot Granulo (auto) ESR Sodium Potassium Chloride Carbon Dioxide Anion Gap BUN Creatinine Estimated Creat Clear Estimated GFR 117 Glucose Cancelled 127 H Lactate 1.6 Calcium Cancelled 8.7 Total Bilirubin Cancelled AST ALT Alkaline Phosphatase C-Reactive Protein Total Protein Albumin 05/09/24 05/09/24 05/09/24 08:32 08:32 08:32 WBC RBC Hgb Hct MCV MCH MCHC RDW Coeff of Smita Plt Count Neut % (Auto) Lymph % (Auto) [place] % (Auto) Eos % (Auto) Baso % (Auto) Neut # (Auto) Lymph # (Auto) [place] # (Auto) Eos # (Auto) Baso # (Auto) Abs Immat Gran (auto) Imm/Tot Granulo (auto) ESR Sodium Potassium Chloride Carbon Dioxide Anion Gap BUN Creatinine Estimated Creat Clear Estimated GFR Glucose Lactate Calcium Total Bilirubin 0.2 AST Cancelled 20 ALT Cancelled 15 Alkaline Phosphatase Cancelled C-Reactive Protein Total Protein Albumin 05/09/24 05/09/24 05/09/24 08:32 08:32 08:32 WBC RBC Hgb Hct MCV MCH MCHC RDW Coeff of Smita Plt Count Neut % (Auto) Lymph % (Auto) [place] % (Auto) Eos % (Auto) Baso % (Auto) Neut # (Auto) Lymph # (Auto) [place] # (Auto) Eos # (Auto) Baso # (Auto) Abs Immat Gran (auto) Imm/Tot Granulo (auto) ESR Sodium Potassium Chloride Carbon Dioxide Anion Gap BUN Creatinine Estimated Creat Clear Estimated GFR Glucose Lactate Calcium Total Bilirubin AST ALT Alkaline Phosphatase 62 C-Reactive Protein 2.0 H Total Protein Cancelled 6.8 Albumin Cancelled 3.7
[2024-05-09 09:34] LABS: Erythrocyte SedimentationRate* 44 mm/hr (2-15)
--- NOTE | 2024-05-09 10:08 | PM.GSCN ---
History of Present Illness Consult details Date Seen: 05/09/24 Consult date: 05/09/24 Narrative: Was asked to see the patient for evaluation of his left posterior thigh wound. In he also has infection around his right eye and left finger. He 1st noticed swelling and pain on his posterior thigh a little over week ago. The area initially became red and painful to the touch. He has started to have drainage over the last few days. Right now he is most bothered by the swelling and pain in his eye. He is unable to fully open up his side. There is a scab in this area but he denies any current drainage. On chart review he does have a leukocytosis (11.57) with a left shift. A CT of the face was obtained, but no imaging of the thigh. The left thigh erythema and induration has been outlined and does not appear to have extended beyond the outline since his admission. He is otherwise healthy and has never had anything like this before. He does smoke on a daily basis but denies any drug use or excessive alcohol. Review of Systems Status of ROS: Reports: 6 or more systems reviewed and unremarkable except as noted in History and below [facility] Social History What is your current living situation?: I presently have a place to live Problems where you live: no known problems Problems where you live details: N/A In the past 12 months, utilities in danger of being shut off: no In past 12 months, lack of transportation kept you from medical appts, meetings, work, or getting things needed for daily living: no In the past 12 mos, have been you worried that your food would run out before you had money to buy more?: never true In the past 12 mos, the food you bought just didn't last and you didn't have money to buy more?: never true Highest level of school completed/degree received: GED or equivalent Smoking Status: Current every day smoker What tobacco products do you use: cigarettes Smoking packs per day: 0.5 Smoking cigarettes per day: 10.0 Years smoked: 25 Smoking pack-years: 12.50 Second hand tobacco smoke exposure: Yes How often do you have a drink containing alcohol: 2-4 times a month Alcohol type: hard liquor How many standard drinks containing alcohol do you have on a typical day: 3 or 4 How often do you have six or more drinks on one occasion: Never AUDIT-C Alcohol total score: 3 Non-prescribed substance use: marijuana (any form) Caffeine: No How often does anyone, including family, friends and others, physically hurt you: never How often does anyone, including family, friends and others, insult or talk down to you: never How often does anyone, including family, friends and others, threaten you with harm: never How often does anyone, including family, friends and others, scream or curse at you: never service: Yes Meds Home Medications and Allergies Home Medications ?Medication ?Instructions ?Recorded ?Confirmed ?Type No Known Home Medications 05/08/24 05/08/24 History Allergies Allergy/AdvReac Type Severity Reaction Status Date / Time dextromethorphan Allergy Mild Hives Verified 05/08/24 23:20 [From Dimetapp Cold-Congestion] diphenhydramine Allergy Mild Hives Verified 05/08/24 23:20 [From Dimetapp Cold-Congestion] guaifenesin Allergy Mild Hives Verified 05/08/24 23:20 [From Dimetapp Cold-Congestion] phenylephrine Allergy Mild Hives Verified 05/08/24 23:20 [From Dimetapp Cold-Congestion] pseudoephedrine Allergy Mild Hives Verified 05/08/24 23:20 [From Dimetapp Cold-Congestion] Exam Narrative: Exam Narrative: General alert and oriented, nontoxic in appearance HEENT: Right periorbital induration and erythema, most prominent superior medial. 2 mm scab on the most inflamed area with no active drainage. Patient is unable to open up his thigh. Respiratory: Equal breath rise bilaterally, maintained on room air CV: Well perfused Extremities: Left posterior thigh erythema and induration outlined, some overlying dry skin that is peeling away. Central opening with no significant necrosis. No large fluctuance appreciated but able to express purulence with palpation. Const: Vital Signs, click to edit/add: Vital Signs - 24 hr 05/08/24 23:16 05/09/24 01:50 05/09/24 01:50 Temperature 99.0 F 98.4 F Pulse Rate [Left P ulse Oximeter] 129 H Pulse Rate [Pulse Oximeter] 97 Respiratory Rate 18 18 18 Blood Pressure [Ri ght Arm] 145/98 H Blood Pressure [Ri ght Upper Arm] 160/101 H Pulse Oximetry 98 100 100 Oxygen Delivery Me thod Room Air Room Air Room Air 05/09/24 04:40 05/09/24 08:17 Temperature 98.2 F 98.1 F Pulse Rate [Left P ulse Oximeter] Pulse Rate [Pulse Oximeter] 84 86 Respiratory Rate 14 16 Blood Pressure [Ri ght Arm] 143/93 H 171/112 H Blood Pressure [Ri ght Upper Arm] Pulse Oximetry 97 100 Oxygen Delivery Me thod Room Air Room Air Results Labs Labs: Abnormal lab results 05/08/24 05/09/24 05/09/24 Range/Units 23:30 00:00 08:32 WBC 12.32 H 11.57 H (4.50-11.00) K/uL RBC 4.29 L (4.30-5.90) m/uL Hgb 12.7 L (13.5-17.5) gm/dL Neut % (Auto) 81.5 H 75.2 H (42.0-72.0) % Lymph % (Auto) 10.2 L 14.8 L (20-44) % Neut # (Auto) 10.00 H 8.70 H (1.7-7.0) K/uL ESR 56 H 44 H (2-15) mm/hr Potassium 3.4 L (3.6-5.1) mmol/L Glucose 187 H 127 H (60-115) mg/dL Lactate 3.2 H (0.5-1.9) mmol/L C-Reactive Protein 2.3 H 2.0 H (0.5-1.0) mg/dL Diabetes panel 05/08/24 05/09/24 05/09/24 Range/Units 23:30 08:32 08:32 Sodium 139 Cancelled 137 (135-149) mmol/L Potassium 3.4 L Cancelled (3.6-5.1) mmol/L Chloride 104 (96-114) mmol/L Carbon Dioxide 23 (20-32) mmol/L BUN 11 (5-24) mg/dL Creatinine 0.6 (0.5-1.5) mg/dL Glucose 187 H (60-115) mg/dL Calcium 9.9 (8.4-10.6) mg/dL AST ALT Alkaline Phosphatase Total Protein Albumin 05/09/24 05/09/24 05/09/24 Range/Units 08:32 08:32 08:32 Sodium (135-149) mmol/L Potassium 4.1 (3.6-5.1) mmol/L Chloride Cancelled 108 (96-114) mmol/L Carbon Dioxide Cancelled 21 (20-32) mmol/L BUN Cancelled (5-24) mg/dL Creatinine (0.5-1.5) mg/dL Glucose (60-115) mg/dL Calcium (8.4-10.6) mg/dL AST ALT Alkaline Phosphatase Total Protein Albumin 05/09/24 05/09/24 05/09/24 Range/Units 08:32 08:32 08:32 Sodium (135-149) mmol/L Potassium (3.6-5.1) mmol/L Chloride (96-114) mmol/L Carbon Dioxide (20-32) mmol/L BUN 14 (5-24) mg/dL Creatinine Cancelled 0.7 (0.5-1.5) mg/dL Glucose Cancelled 127 H (60-115) mg/dL Calcium Cancelled (8.4-10.6) mg/dL AST ALT Alkaline Phosphatase Total Protein Albumin 05/09/24 05/09/24 05/09/24 Range/Units 08:32 08:32 08:32 Sodium (135-149) mmol/L Potassium (3.6-5.1) mmol/L Chloride (96-114) mmol/L Carbon Dioxide (20-32) mmol/L BUN (5-24) mg/dL Creatinine (0.5-1.5) mg/dL Glucose (60-115) mg/dL Calcium 8.7 (8.4-10.6) mg/dL AST Cancelled 20 ALT Cancelled 15 Alkaline Phosphatase Cancelled Total Protein Albumin 05/09/24 05/09/24 05/09/24 Range/Units 08:32 08:32 08:32 Sodium (135-149) mmol/L Potassium (3.6-5.1) mmol/L Chloride (96-114) mmol/L Carbon Dioxide (20-32) mmol/L BUN (5-24) mg/dL Creatinine (0.5-1.5) mg/dL Glucose (60-115) mg/dL Calcium (8.4-10.6) mg/dL AST ALT Alkaline Phosphatase 62 Total Protein Cancelled 6.8 Albumin Cancelled 3.7 Calcium panel 05/08/24 05/09/24 05/09/24 Range/Units 23:30 08:32 08:32 Calcium 9.9 Cancelled 8.7 (8.4-10.6) mg/dL Albumin Cancelled 05/09/24 Range/Units 08:32 Calcium (8.4-10.6) mg/dL Albumin 3.7 Pituitary panel 05/08/24 05/09/24 05/09/24 Range/Units 23:30 08:32 08:32 Sodium 139 Cancelled 137 (135-149) mmol/L Potassium 3.4 L Cancelled (3.6-5.1) mmol/L Chloride 104 (96-114) mmol/L Carbon Dioxide 23 (20-32) mmol/L BUN 11 (5-24) mg/dL Creatinine 0.6 (0.5-1.5) mg/dL Glucose 187 H (60-115) mg/dL Calcium 9.9 (8.4-10.6) mg/dL 05/09/24 05/09/24 05/09/24 Range/Units 08:32 08:32 08:32 Sodium (135-149) mmol/L Potassium 4.1 (3.6-5.1) mmol/L Chloride Cancelled 108 (96-114) mmol/L Carbon Dioxide Cancelled 21 (20-32) mmol/L BUN Cancelled (5-24) mg/dL Creatinine (0.5-1.5) mg/dL Glucose (60-115) mg/dL Calcium (8.4-10.6) mg/dL 05/09/24 05/09/24 05/09/24 Range/Units 08:32 08:32 08:32 Sodium (135-149) mmol/L Potassium (3.6-5.1) mmol/L Chloride (96-114) mmol/L Carbon Dioxide (20-32) mmol/L BUN 14 (5-24) mg/dL Creatinine Cancelled 0.7 (0.5-1.5) mg/dL Glucose Cancelled 127 H (60-115) mg/dL Calcium Cancelled (8.4-10.6) mg/dL 05/09/24 Range/Units 08:32 Sodium (135-149) mmol/L Potassium (3.6-5.1) mmol/L Chloride (96-114) mmol/L Carbon Dioxide (20-32) mmol/L BUN (5-24) mg/dL Creatinine (0.5-1.5) mg/dL Glucose (60-115) mg/dL Calcium 8.7 (8.4-10.6) mg/dL Adrenal panel 05/08/24 05/09/24 05/09/24 Range/Units 23:30 08:32 08:32 Sodium 139 Cancelled 137 (135-149) mmol/L Potassium 3.4 L Cancelled (3.6-5.1) mmol/L Chloride 104 (96-114) mmol/L Carbon Dioxide 23 (20-32) mmol/L BUN 11 (5-24) mg/dL Creatinine 0.6 (0.5-1.5) mg/dL Glucose 187 H (60-115) mg/dL Calcium 9.9 (8.4-10.6) mg/dL Total Bilirubin AST ALT Alkaline Phosphatase Total Protein Albumin 05/09/24 05/09/24 05/09/24 Range/Units 08:32 08:32 08:32 Sodium (135-149) mmol/L Potassium 4.1 (3.6-5.1) mmol/L Chloride Cancelled 108 (96-114) mmol/L Carbon Dioxide Cancelled 21 (20-32) mmol/L BUN Cancelled (5-24) mg/dL Creatinine (0.5-1.5) mg/dL Glucose (60-115) mg/dL Calcium (8.4-10.6) mg/dL Total Bilirubin AST ALT Alkaline Phosphatase Total Protein Albumin 05/09/24 05/09/24 05/09/24 Range/Units 08:32 08:32 08:32 Sodium (135-149) mmol/L Potassium (3.6-5.1) mmol/L Chloride (96-114) mmol/L Carbon Dioxide (20-32) mmol/L BUN 14 (5-24) mg/dL Creatinine Cancelled 0.7 (0.5-1.5) mg/dL Glucose Cancelled 127 H (60-115) mg/dL Calcium Cancelled (8.4-10.6) mg/dL Total Bilirubin AST ALT Alkaline Phosphatase Total Protein Albumin 05/09/24 05/09/2424 Range/Units 08:32 08:32 08:32 Sodium (135-149) mmol/L Potassium (3.6-5.1) mmol/L Chloride (96-114) mmol/L Carbon Dioxide (20-32) mmol/L BUN (5-24) mg/dL Creatinine (0.5-1.5) mg/dL Glucose (60-115) mg/dL Calcium 8.7 (8.4-10.6) mg/dL Total Bilirubin Cancelled 0.2 AST Cancelled 20 ALT Cancelled Alkaline Phosphatase Total Protein Albumin 05/09/24 05/09/24 05/09/24 Range/Units 08:32 08:32 08:32 Sodium (135-149) mmol/L Potassium (3.6-5.1) mmol/L Chloride (96-114) mmol/L Carbon Dioxide (20-32) mmol/L BUN (5-24) mg/dL Creatinine (0.5-1.5) mg/dL Glucose (60-115) mg/dL Calcium (8.4-10.6) mg/dL Total Bilirubin AST ALT 15 Alkaline Phosphatase Cancelled 62 Total Protein Cancelled 6.8 Albumin Cancelled 05/09/24 Range/Units 08:32 Sodium (135-149) mmol/L Potassium (3.6-5.1) mmol/L Chloride (96-114) mmol/L Carbon Dioxide (20-32) mmol/L BUN (5-24) mg/dL Creatinine (0.5-1.5) mg/dL Glucose (60-115) mg/dL Calcium (8.4-10.6) mg/dL Total Bilirubin AST ALT Alkaline Phosphatase Total Protein Albumin 3.7 All other labs normal. Progress Note:A&P Assessment and plan (1) Cellulitis: Status: Acute Assessment and Plan: 43-year-old male with 3 distinct areas of cellulitis, concerning for endocarditis. I was asked to evaluate the left posterior thigh infection. No need for surgical debridement at this time. Area is actively draining purulence with no large underlying abscess appreciated during my examination. Cellulitis is within the outlined area and seems to be receding. Agree with continuing IV antibiotics. Would dress the wound with iodine and outer Mepilex, change daily. Culture has been obtained and is pending.
--- NOTE | 2024-05-09 11:19 | PC.PHA ---
Vancomycin consult note: Indication for vancomycin: Multiple sites of cellulitis Age: [43] Height: [193 cm] Weight: [104 kg] Most recent SCr: [0.6] Estimated CrCL: [167] Recommended dose and frequency: [1750 iv q 12 hr (auc = 449, est pk/tr of 01/09)] to obtain an estimated AUC/NELIA of 400-600 mcg*hr/m Additional comment: [also on pip/tazo 4.5 iv q6h]
[2024-05-09] MEDS: VANCOMYCIN 1.75 GM/350 ML 1.75 GM/350 ML PIGGYBACK IVPB (11:58)
--- NOTE | 2024-05-09 15:12 | PM.ORCN ---
History of Present Illness HPI Date Seen: 05/09/24 Requesting physician: Summer Corrales Chief complaint: eye and leg infection Narrative: Robin is a 43-year-old male who was admitted to the [facility] last night for treatment of cellulitis around his right eye, posterior left thigh, and left middle finger. Symptoms initially started with his eye and thigh. However he began experiencing pain and swelling of his left middle finger a couple of days ago. He does not recall any specific injury that contributed to the symptoms. He has been admitted for IV antibiotics and is currently on vancomycin and Zosyn. Orthopedics is consulted to evaluate his left middle finger. Patient reports pain and swelling in the distal portion of the left middle finger. He denies any pain extending into his palm. He states that he is able to move his fingers without significant discomfort. [facility] Medical History (Updated 05/09/24 @ 11:49 by Summer Corrales MD) MSSA bacteremia ?R78.81 - Bacteremia (ICD-10) ?B95.61 - Methicillin susceptible Staphylococcus aureus infection as the cause of diseases classified elsewhere (ICD-10) PTSD (post-traumatic stress disorder) (07/31/20) ?F43.10 - Post-traumatic stress disorder, unspecified (ICD-10) Opiate dependence (12/03/14) ?F11.20 - Opioid dependence, uncomplicated (ICD-10) Social History What is your current living situation?: I presently have a place to live Problems where you live: no known problems Problems where you live details: N/A In the past 12 months, utilities in danger of being shut off: no In past 12 months, lack of transportation kept you from medical appts, meetings, work, or getting things needed for daily living: no In the past 12 mos, have been you worried that your food would run out before you had money to buy more?: never true In the past 12 mos, the food you bought just didn't last and you didn't have money to buy more?: never true Highest level of school completed/degree received: GED or equivalent Smoking Status: Current every day smoker What tobacco products do you use: cigarettes Smoking packs per day: 0.5 Smoking cigarettes per day: 10.0 Years smoked: 25 Smoking pack-years: 12.50 Second hand tobacco smoke exposure: Yes How often do you have a drink containing alcohol: 2-4 times a month Alcohol type: hard liquor How many standard drinks containing alcohol do you have on a typical day: 3 or 4 How often do you have six or more drinks on one occasion: Never AUDIT-C Alcohol total score: 3 Non-prescribed substance use: marijuana (any form) Caffeine: No How often does anyone, including family, friends and others, physically hurt you: never How often does anyone, including family, friends and others, insult or talk down to you: never How often does anyone, including family, friends and others, threaten you with harm: never How often does anyone, including family, friends and others, scream or curse at you: never service: Yes Meds Home Medications and Allergies Home Medications ?Medication ?Instructions ?Recorded ?Confirmed ?Type No Known Home Medications 05/08/24 05/08/24 History Allergies Allergy/AdvReac Type Severity Reaction Status Date / Time dextromethorphan Allergy Mild Hives Verified 05/08/24 23:20 [From Dimetapp Cold-Congestion] diphenhydramine Allergy Mild Hives Verified 05/08/24 23:20 [From Dimetapp Cold-Congestion] guaifenesin Allergy Mild Hives Verified 05/08/24 23:20 [From Dimetapp Cold-Congestion] phenylephrine Allergy Mild Hives Verified 05/08/24 23:20 [From Dimetapp Cold-Congestion] pseudoephedrine Allergy Mild Hives Verified 05/08/24 23:20 [From Dimetapp Cold-Congestion] Ortho Exam Narrative Exam Narrative: Musculoskeletal: The left hand was examined. Left middle finger was noted to have mild circumferential swelling and erythema which extended from the middle aspect of the middle phalanx distally. This area was diffusely tender to palpation. There was no tenderness to palpation along the volar aspect of the middle finger proximal to the PIP joint or tenderness in the palm. He was able to flex and extend his middle finger MCP and PIP joints without pain. Full extension of the middle finger without significant discomfort. Finger was warm and well perfused with intact sensation throughout. Const Vital Signs, click to edit/add: Vital Signs - 24 hr 05/08/24 23:16 05/09/24 01:50 05/09/24 01:50 Temperature 99.0 F 98.4 F Pulse Rate [Left Pulse Oximeter] 129 H Pulse Rate [Pulse Oximeter] 97 Respiratory Rate 18 18 18 Blood Pressure [Right Arm] 145/98 H Blood Pressure [Right Upper Arm] 160/101 H Pulse Oximetry 98 100 100 Oxygen Delivery Method Room Air Room Air Room Air 05/09/24 04:40 05/09/24 07:00 05/09/24 08:17 Temperature 98.2 F 98.1 F Pulse Rate [Left Pulse Oximeter] Pulse Rate [Pulse Oximeter] 84 86 86 Respiratory Rate 14 16 16 Blood Pressure [Right Arm] 143/93 H 171/112 H Blood Pressure [Right Upper Arm] Pulse Oximetry 97 100 Oxygen Delivery Method Room Air Room Air 05/09/24 11:00 Temperature 98.2 F Pulse Rate [Left Pulse Oximeter] Pulse Rate [Pulse Oximeter] 74 Respiratory Rate 16 Blood Pressure [Right Arm] 140/84 H Blood Pressure [Right Upper Arm] Pulse Oximetry 98 Oxygen Delivery Method Room Air Results Labs Labs: Laboratory Results - last 48 hr 05/08/24 05/09/24 05/09/24 23:30 00:00 01:45 WBC 12.32 H RBC 4.86 Hgb 14.5 Hct 43.0 MCV 89 MCH 30 MCHC 34 RDW Coeff of Smita 11.7 Plt Count 332 Neut % (Auto) 81.5 H Lymph % (Auto) 10.2 L [place] % (Auto) 5.9 Eos % (Auto) 1.2 Baso % (Auto) 0.2 Neut # (Auto) 10.00 H Lymph # (Auto) 1.30 [place] # (Auto) 0.70 Eos # (Auto) 0.10 Baso # (Auto) 0.00 Abs Immat Gran (auto) 0.10 Imm/Tot Granulo (auto) 1.0 ESR 56 H Sodium 139 Potassium 3.4 L Chloride 104 Carbon Dioxide 23 Anion Gap 12 BUN 11 Creatinine 0.6 Estimated Creat Clear 194.90 Estimated GFR 123 Glucose 187 H Lactate 3.2 H 0.9 Calcium 9.9 Total Bilirubin AST ALT Alkaline Phosphatase C-Reactive Protein 2.3 H Total Protein Albumin Ur Drug Screen Comment 05/09/24 05/09/24 05/09/24 08:32 08:32 08:32 WBC 11.57 H RBC 4.29 L Hgb 12.7 L Hct 38.4 MCV 90 MCH 30 MCHC 33 RDW Coeff of Smita 11.8 Plt Count 289 Neut % (Auto) 75.2 H Lymph % (Auto) 14.8 L [place] % (Auto) 8.1 Eos % (Auto) 1.4 Baso % (Auto) 0.3 Neut # (Auto) 8.70 H Lymph # (Auto) 1.70 [place] # (Auto) 0.90 Eos # (Auto) 0.20 Baso # (Auto) 0.00 Abs Immat Gran (auto) 0.00 Imm/Tot Granulo (auto) 0.2 ESR 44 H Sodium Cancelled 137 Potassium Cancelled 4.1 Chloride Cancelled Carbon Dioxide Anion Gap BUN Creatinine Estimated Creat Clear Estimated GFR Glucose Lactate Calcium Total Bilirubin AST ALT Alkaline Phosphatase C-Reactive Protein Total Protein Albumin Ur Drug Screen Comment 05/09/24 05/09/24 05/09/24 08:32 08:32 08:32 WBC RBC Hgb Hct MCV MCH MCHC RDW Coeff of Smita Plt Count Neut % (Auto) Lymph % (Auto) [place] % (Auto) Eos % (Auto) Baso % (Auto) Neut # (Auto) Lymph # (Auto) [place] # (Auto) Eos # (Auto) Baso # (Auto) Abs Immat Gran (auto) Imm/Tot Granulo (auto) ESR Sodium Potassium Chloride 108 Carbon Dioxide Cancelled 21 Anion Gap Cancelled 8 BUN Cancelled Creatinine Estimated Creat Clear Estimated GFR Glucose Lactate Calcium Total Bilirubin AST ALT Alkaline Phosphatase C-Reactive Protein Total Protein Albumin Ur Drug Screen Comment 05/09/24 05/09/24 05/09/24 08:32 08:32 08:32 WBC RBC Hgb Hct MCV MCH MCHC RDW Coeff of Smita Plt Count Neut % (Auto) Lymph % (Auto) [place] % (Auto) Eos % (Auto) Baso % (Auto) Neut # (Auto) Lymph # (Auto) [place] # (Auto) Eos # (Auto) Baso # (Auto) Abs Immat Gran (auto) Imm/Tot Granulo (auto) ESR Sodium Potassium Chloride Carbon Dioxide Anion Gap BUN 14 Creatinine Cancelled 0.7 Estimated Creat Clear Cancelled 167.06 Estimated GFR Cancelled Glucose Lactate Calcium Total Bilirubin AST ALT Alkaline Phosphatase C-Reactive Protein Total Protein Albumin Ur Drug Screen Comment 05/09/24 05/09/24 05/09/24 08:32 08:32 08:32 WBC RBC Hgb Hct MCV MCH MCHC RDW Coeff of Smita Plt Count Neut % (Auto) Lymph % (Auto) [place] % (Auto) Eos % (Auto) Baso % (Auto) Neut # (Auto) Lymph # (Auto) [place] # (Auto) Eos # (Auto) Baso # (Auto) Abs Immat Gran (auto) Imm/Tot Granulo (auto) ESR Sodium Potassium Chloride Carbon Dioxide Anion Gap BUN Creatinine Estimated Creat Clear Estimated GFR 117 Glucose Cancelled 127 H Lactate 1.6 Calcium Cancelled 8.7 Total Bilirubin Cancelled AST ALT Alkaline Phosphatase C-Reactive Protein Total Protein Albumin Ur Drug Screen Comment 05/09/24 05/09/24 05/09/24 08:32 08:32 08:32 WBC RBC Hgb Hct MCV MCH MCHC RDW Coeff of Smita Plt Count Neut % (Auto) Lymph % (Auto) [place] % (Auto) Eos % (Auto) Baso % (Auto) Neut # (Auto) Lymph # (Auto) [place] # (Auto) Eos # (Auto) Baso # (Auto) Abs Immat Gran (auto) Imm/Tot Granulo (auto) ESR Sodium Potassium Chloride Carbon Dioxide Anion Gap BUN Creatinine Estimated Creat Clear Estimated GFR Glucose Lactate Calcium Total Bilirubin 0.2 AST Cancelled 20 ALT Cancelled 15 Alkaline Phosphatase Cancelled C-Reactive Protein Total Protein Albumin Ur Drug Screen Comment 05/09/24 05/09/24 05/09/24 08:32 08:32 08:32 WBC RBC Hgb Hct MCV MCH MCHC RDW Coeff of Smita Plt Count Neut % (Auto) Lymph % (Auto) [place] % (Auto) Eos % (Auto) Baso % (Auto) Neut # (Auto) Lymph # (Auto) [place] # (Auto) Eos # (Auto) Baso # (Auto) Abs Immat Gran (auto) Imm/Tot Granulo (auto) ESR Sodium Potassium Chloride Carbon Dioxide Anion Gap BUN Creatinine Estimated Creat Clear Estimated GFR Glucose Lactate Calcium Total Bilirubin AST ALT Alkaline Phosphatase 62 C-Reactive Protein 2.0 H Total Protein Cancelled 6.8 Albumin Cancelled 3.7 Ur Drug Screen Comment 05/09/24 14:39 WBC RBC Hgb Hct MCV MCH MCHC RDW Coeff of Smita Plt Count Neut % (Auto) Lymph % (Auto) [place] % (Auto) Eos % (Auto) Baso % (Auto) Neut # (Auto) Lymph # (Auto) [place] # (Auto) Eos # (Auto) Baso # (Auto) Abs Immat Gran (auto) Imm/Tot Granulo (auto) ESR Sodium Potassium Chloride Carbon Dioxide Anion Gap BUN Creatinine Estimated Creat Clear Estimated GFR Glucose Lactate Calcium Total Bilirubin AST ALT Alkaline Phosphatase C-Reactive Protein Total Protein Albumin Ur Drug Screen Comment See Note Assessment and Plan Assessment and plan (1) Sepsis: Problem comment: - WBC >12, elevated lactate, purulent wounds - lactate has normalized, WBC trending downward - on Zosyn and Vancomycin (05/08) Status: Acute Total time spent: Total time spent is greater than 50% in coordination of care (as documented) at patient's floor/unit and/or counseling patient: (2) Cellulitis: Problem comment: - three discreet locations: L middle finger, R orbit, L posterior thigh - no evidence of abscess on facial CT - concerning for systemic infection - on Vancomycin and Zosyn (05/08), blood cultures pending - patient endorses h/o IVDU (declines any recent use) - TTE to be done 05/09 Status: Acute Total time spent: Total time spent is greater than 50% in coordination of care (as documented) at patient's floor/unit and/or counseling patient: (3) Nicotine abuse: Problem comment: - prn replacement Status: Acute Total time spent: Total time spent is greater than 50% in coordination of care (as documented) at patient's floor/unit and/or counseling patient: Plan The distal left middle finger pain, swelling, erythema is consistent with cellulitis. Clinical exam is not concerning for pyogenic flexor tenosynovitis. Recommend current management consisting of IV antibiotics, elevation of the hand, and pain management. Please contact Orthopedics should he develop signs of worsening infection or signs of pyogenic flexor tenosynovitis to include increased swelling, pain extending along the palmar surface of the finger or hand, pain with extension of the finger.
[2024-05-09 15:22] LABS: Amphetamine Screen Urine POSITIVE (Negative); Barbiturate Screen Urine Negative (Negative); Benzodiazepines Screen Urine Negative (Negative); Cannabinoid Screen Urine Negative (Negative); Cocaine Screen Urine Negative (Negative); Methadone Screen Urine Negative (Negative); Methamphetamines Screen Urine POSITIVE (Negative); Opiate Screen Urine Negative (Negative); Oxycodone Screen Urine POSITIVE (Negative); Phencyclidine Screen Urine Negative (Negative); Tricyclic Antidepressant Urine Negative (Negative)
--- NOTE | 2024-05-09 17:22 | PC.NURSE ---
End of shift-- Pt cooperative but drowsy most of the day. Alert and oriented. Several times today patient appeared restless and uncomfortable, but has remained in bed throughout the day with the blinds drawn. VSS, though initially hypertensive this morning, and pt is afebrile. SPO2 >94% on RA. Pt rated pain from 7-10 out of 10 today and c/o pain primarily in face and hand. Pain does appear well managed with Oxycodone q4h and Tylenol q6, though patient becomes restless and c/o pain when it has been nearly 4 hours since pain med administration. Area of swelling above right eye remains reddened and edematous, though redness appears to be receding within previously drawn boundary. Pt was unable to open right eye this morning and was able to open it a small amount this afternoon. Area on middle finger of left hand is reddened and edematous. Seen by Ortho surgeon at bedside this morning. Area is outlined and remains AIR TUCKER. Area on upper left posterior thigh is open and draining small amount of purulent drainage. Area was seen by Dr. Alfaro at bedside this morning and per her request, area was swabbed with Betadine and Mepilex was applied. LS CTA. He denied nausea, though appetite was poor. Pt declined breakfast, but ate 75% of a regular lunch without difficulty and tolerated it well. He was up to BR independently and tolerated it well. Report to DINAH Alvarado. All questions answered.
--- NOTE | 2024-05-09 18:51 | PC.NURSE ---
End of Shift([id number]): Patient restless and on edge. Patient hypertensive but vitally stable, lungs clear, BS WNL, IV SL an intact. Patient independent in room. Patient rates pain 10/10, 10 mg of oxy given once and 0.5 mg of dilauded given once. Patient showered. Patient urinating and tolerating regular diet but does not have a great appetite. Right eye and left middle finger open to air, swollen and reddened, no drainage. Left thigh with mepilex, small drainage seen through dressing.
[2024-05-09] MEDS: hydrOXYzine pamoate 25 MG CAPSULE PO (19:40)
[2024-05-09] MEDS: LORazepam 2 MG/ML inj 1 MG IVP (20:35)
[2024-05-10] MEDS: LORazepam 2 MG/ML inj 1 MG IVP ×3 (00:49→22:00)
[2024-05-10] MEDS: VANCOMYCIN 1.75 GM/350 ML 1.75 GM/350 ML PIGGYBACK IVPB ×2 (00:49→12:16)
[2024-05-10] MEDS: hydrOXYzine pamoate 25 MG CAPSULE PO ×5 (00:49→22:00)
[2024-05-10] MEDS: OXYCODONE 5 MG TABLET PO (00:49)
[2024-05-10 01:10] VITALS: BP 151/102; PULSE 89; RESP 20; TEMP 36.8; O2SAT 99
[2024-05-10] MEDS: HYDROmorphone 0.5 mg/0.5 ml inj IVP ×3 (02:01→04:14)
[2024-05-10] MEDS: PIPERACILLIN/TAZOBACTAM 4.5 GM in 0.9 % SODIUM CHLORIDE Mini-bag 100 ML IVPB ×4 (02:59→21:11)
--- NOTE | 2024-05-10 03:43 | PM.EN ---
Chart Event Note Chart Event Note: Called regarding uncontrolled pain despite aggressive pain regimen. Given additional 0.5 mg of Dilaudid without any improvement. added Toradol 15 mg every 6 hours as needed. Per nursing staff no evidence of worsening infection.
[2024-05-10] MEDS: KETOROLAC 15 MG/ML inj IVP (04:15)
[2024-05-10 04:43] VITALS: BP 179/132; PULSE 99; RESP 20; TEMP 37.3; O2SAT 98
[2024-05-10 06:08] LABS: Basophils Absolute Auto 0.05 K/uL (0.00-0.30); Basophils Percent Auto 0.5 % (0.0-3.0); Eosinophils Absolute Auto 0.22 K/uL (0.00-0.50); Eosinophils Percent Auto 2.3 % (0.0-7.0); Hematocrit 35.6 % (37.0-53.0); Hemoglobin* 11.9 gm/dL (13.5-17.5); Immature Granulocytes Abs Auto 0.02 K/uL (0.00-0.30); Immature Granulocytes Pct Auto 0.2 %; Lymphocytes Percent Auto 19.1 % (20-44); Mean Corpuscular HGB Conc 33 gm/dL (32-36); Mean Corpuscular Hemoglobin 30 pg (26-34); Mean Corpuscular Volume 90 fL (80-100); Monocytes Percent Auto 8.5 % (0.0-11.0); Neutrophils Absolute Auto 6.68 K/uL (1.7-7.0); Neutrophils Percent Auto 69.4 % (42.0-72.0); Platelet Count* 263 K/uL (140-440); RDW Coefficient of Variation % 11.8 % (11.5-15.5); Red Blood Count 3.97 m/uL (4.30-5.90); White Blood Count* 9.63 K/uL (4.50-11.00)
[2024-05-10 06:24] LABS: Albumin* 3.5 g/dL (3.3-5.0); Chloride* 108 mmol/L (96-114); Potassium* 3.6 mmol/L (3.6-5.1); Sodium* 140 mmol/L (135-149)
[2024-05-10 06:26] LABS: Creatinine* 0.7 mg/dL (0.5-1.5); Est. Creatinine Clearance* 167.06; Estimated Glomerular Filt Rate 117 ml/min
[2024-05-10 06:27] LABS: Alanine Aminotransferase* 14 U/L (4-50); Alkaline Phosphatase* 58 U/L (40-150); Anion Gap 4 mEq/L (7-15); Aspartate Amino Transferase* 20 U/L (12-35); Bilirubin Total* 0.1 mg/dL (0.1-1.5); Blood Urea Nitrogen* 12 mg/dL (5-24); Carbon Dioxide* 28 mmol/L (20-32); Glucose* 111 mg/dL (60-115); Total Protein* 6.4 g/dL (6.0-8.3)
--- NOTE | 2024-05-10 06:27 | PC.NURSE ---
End of shift [id number] - Pt alert, oriented, cooperative to care. Pt reported pain in L finger as 10/10. Pt behavior noted to be restless and agitated, evidenced by kicking of legs, shifting weight/rocking while in bed, verbal outbursts of profane language, and displacing personal items such as pillows, blankets, and side table. Pt stated that the pain in his finger was the worst f-ing pain he has ever felt and he reported to the RN that he was going to lose his f-ing mind if he didn't get pain relief. RN attempted to manage pt's pain with medication available in NOV. Pt reported no relief or improvement in comfort. Overnight MD contacted and updated with pt condition related to pain control. Orders given, pt again reported no relief. RN noted pt behavior indicated improved comfort and pt was observed to sleep at approximately 0530. Pt appears to be resting comfortably in bed with call light within reach. RN updated charge nurse with reports of pt behavior and indicated that pt frustration was not directed toward RN/medical staff and no physical or verbal aggression was experienced or directed towards RN during shift.
[2024-05-10 06:28] LABS: Calcium* 8.6 mg/dL (8.4-10.6)
[2024-05-10 06:35] LABS: Slide Review Reflex No
[2024-05-10 06:37] LABS: Lactate* 0.7 mmol/L (0.5-1.9)
[2024-05-10 07:11] LABS: Erythrocyte SedimentationRate* 42 mm/hr (2-15)
[2024-05-10] MEDS: 0.9 % SODIUM CHLORIDE 250 ml IV (08:30)
[2024-05-10] MEDS: SODIUM CHLORIDE 0.9 % (FLUSH) 10 ML SYRINGE 5 ML IVF ×2 (08:30→21:59)
[2024-05-10] MEDS: OXYCODONE 5 MG TABLET 10 MG PO ×4 (08:33→21:59)
[2024-05-10 08:35] VITALS: BP 143/93; PULSE 72; RESP 16; TEMP 36.7; O2SAT 99
--- NOTE | 2024-05-10 08:59 | PM.IMPN1 ---
Progress Note: A&P Assessment and plan (1) Sepsis: Problem details: - WBC >12, elevated lactate, purulent wounds - lactate has normalized, WBC has also normalized - on Zosyn and Vancomycin (05/08) - BCx NGTD, GPC on wound culture Status: Acute (2) Cellulitis: Problem details: - three discreet locations: L middle finger, R orbit, L posterior thigh - no evidence of abscess on facial CT - concerning for systemic infection - on Vancomycin and Zosyn (05/08), blood cultures pending - patient endorses h/o IVDU (declines any recent use), admits to snorting meth recently - TTE on 05/09 reassuring, NGTD on blood culture Status: Acute (3) Nicotine abuse: Problem details: - prn replacement Status: Acute (4) Methamphetamine use: Problem details: - prn Haldol, Benzos - hemodynamically stable Status: Acute Plan - per above - possibly home tomorrow on oral abx pending wound and blood culture results (at this time, continues to require hospitalization and IV abx) Subjective Date Seen: 05/10/24 Interval history: Robin was admitted on 05/09 for cellulitis of his R upper eyelid (imaging revealed cellulitis without abscess), L middle finger, and L posterior thigh. In the ER, he was noted to be tachycardic with a WBC >12 and an elevated lactate. Vancomycin and Zosyn initiated. Since admission, patient's WBC and lactate have normalized, CRP and ESR continue to trend downward. He remains afebrile. TTE obtained, no acute abnormalities. Blood culture from admission exhibits NGTD, L thigh wound culture growing GPCs. Seen by Orthopedic surgery and General surgery, no interventions needed at this time. Overnight, patient intermittently agitated. Urine drug screen positive for methamphetamines; patient states he snorts this and adamantly denies any recent IV drug use. This morning, patient has no concerns for the hospitalist team. He is feeling better and less agitated; he is amenable to transitioning to only oral pain management today. Exam Narrative: Exam Narrative: GEN: Patient is resting in bed, awakes to voice HEENT: Erythema and induration of R upper eyelid extends superiorly, improved from exam yesterday and erythema remains fully contained in outline drawn upon admission. Eye opens 25% CV: RRR, No concerning murmurs R: LCTA bilaterally without concerning wheezing, air movement adequate MS: L 3rd finger has improving erythema, no extension past outline from admission. Tolerates palpation but notes discomfort, no crepitus. Able to flex/extend with mild discomfort Skin: L posterior thigh covered and not formally examined, improved per nursing staff Neuro: No focal deficits, no resting tremor Psych: Appropriate Const: Vital Signs, click to edit/add: Vital Signs - 24 hr 05/09/24 11:00 05/09/24 15:35 05/09/24 15:35 Temperature 98.2 F 98.1 F Pulse Rate [Pulse Oximeter] 74 81 81 Respiratory Rate 16 14 14 Blood Pressure [Ri ght Arm] 140/84 H 169/118 H Pulse Oximetry 98 99 Oxygen Delivery Me thod Room Air Room Air 05/09/24 19:46 05/09/24 21:17 05/10/24 01:10 Temperature 98.3 F 98.3 F Pulse Rate [Pulse Oximeter] 93 89 Respiratory Rate 16 16 20 Blood Pressure [Ri ght Arm] 158/93 H 151/102 H Pulse Oximetry 99 99 Oxygen Delivery Me thod Room Air Room Air 05/10/24 04:43 05/10/24 08:35 Temperature 99.1 F 98.1 F Pulse Rate [Pulse Oximeter] 99 72 Respiratory Rate 20 16 Blood Pressure [Ri ght Arm] 179/132 H 143/93 H Pulse Oximetry 98 99 Oxygen Delivery Me thod Room Air Room Air Labs Labs: Laboratory Results - last 24 hr 05/09/24 05/09/24 05/10/24 08:32 14:39 05:48 WBC 9.63 RBC 3.97 L Hgb 11.9 L Hct 35.6 L MCV 90 MCH 30 MCHC 33 RDW Coeff of Smita 11.8 Plt Count 263 Neut % (Auto) 69.4 Lymph % (Auto) 19.1 L [place] % (Auto) 8.5 Eos % (Auto) 2.3 Baso % (Auto) 0.5 Neut # (Auto) 6.68 Lymph # (Auto) 1.80 [place] # (Auto) 0.80 Eos # (Auto) 0.22 Baso # (Auto) 0.05 Abs Immat Gran (auto) 0.02 Imm/Tot Granulo (auto) 0.2 ESR 44 H 42 H Sodium 137 140 Potassium 4.1 3.6 Chloride 108 108 Carbon Dioxide 21 28 Anion Gap 8 4 L BUN 14 12 Creatinine 0.7 0.7 Estimated Creat Clear 167.06 167.06 Estimated GFR 117 117 Glucose 127 H 111 Lactate 0.7 Calcium 8.7 8.6 Total Bilirubin 0.2 0.1 AST 20 20 ALT 15 14 Alkaline Phosphatase 62 58 C-Reactive Protein 2.0 H Total Protein 6.8 6.4 Albumin 3.7 3.5 Urine Opiates Screen Negative Ur Oxycodone Screen POSITIVE A Urine Methadone Screen Negative Ur Barbiturates Screen Negative U Tricyclic Antidepress Negative Ur Phencyclidine Scrn Negative Ur Amphetamines Screen POSITIVE A U Methamphetamines Scrn POSITIVE A U Benzodiazepines Scrn Negative Urine Cocaine Screen Negative U Marijuana (THC) Screen Negative Ur Drug Screen Comment See Note
[2024-05-10 11:08] VITALS: BP 162/97; PULSE 80; RESP 18; TEMP 37.6; O2SAT 100
[2024-05-10 15:43] VITALS: BP 183/113; PULSE 88; RESP 20; TEMP 37.3; O2SAT 98
--- NOTE | 2024-05-10 16:20 | PC.NURSE ---
Vape that potentially contains THC was found on patients bed while and confiscated, security contacted to speak with patient.
[2024-05-10] MEDS: ACETAMINOPHEN 325 MG TABLET PO (16:59)
--- NOTE | 2024-05-10 18:25 | PC.NURSE ---
End of Shift: Patient at times hypertensive but stable, lungs clear, BS WNL, IV SL and intact. Patient rates pain 7-10/10, 10mg of oxy with vistaril given Q4H and tylenol given once. Patient is a lot more relaxed today, no profanity used today. Patient right eye and left middle finger still swollen and more pink, both improved, no drainage. Left thigh dressing C/D/I, small drainage seen within mepilex otherwise surrounding tissue is normal. Patient urinating, had 2 BMs, and tolerating regular diet.
[2024-05-10 21:48] VITALS: BP 146/123; PULSE 80; RESP 20; TEMP 37.2; O2SAT 100
--- NOTE | 2024-05-11 00:30 | PC.NURSE ---
0000 Pt called and wanted more ativan. He had just recieved it at 2200. Told him he had had it at 2000 and it could only be given every 4 hrs so he could have it at 0200. He started swearing at and kicking the end of the bed. Stated to him that that type of behavior was not exceptable. He stated he could act however he wanted to. Walked out of room and closed door. At 0020 he came to the nurses desk and stated he wanted to sign the papers cause he was leaving. After going over the reasons he shouldn't leave. He stated he was still leaving. Called [facility] and told the doctor. He just asked to tell him that should it get worse he should come in. This was relayed to the pt. He signed the AMA form. IV was dc'd with catheter intact and site without s/s of infection. Pt dc'd @ 0033.
--- NOTE | 2024-05-11 01:42 | PC.NURSE ---
Discharge - Pt alert and oriented. Pt noted to have increased appetite during shift, asking for food/snacks frequently from medical staff. Cooperative and pleasant at start of shift, behavior changed to include increased restlessness and use of profanity with medical staff. Pt asked for pain medication, when informed of the medication dosing schedule available per [facility] pt became increasingly frustrated and used profanity to indicate his displeasure. Pt stated that he no longer wished to stay in the hospital and indicated his desire to leave. Instruction on AMA procedures as well as education provided to pt by charge nurse. Pt verbalized understanding of medical recommendation and chose to leave hospital and d/c'd himself at approximately 0033.
--- NOTE | 2024-05-11 10:56 | PM.EN ---
Chart Event Note Chart Event Note: Patient left AMA overnight. This morning, I called him twice because we have his culture results and I was concerned about him not completing antibiotic therapy. He called the floor and stated he was still feeling poorly, but was not having any fevers or worsening symptoms. Doxycycline sent to preferred pharmacy. Still having anxiety and pain; discussed that controlled substances are not appropriate, but did prescribe short course of Vistaril and Celebrex for pain. Requested that patient have follow-up in 2-3 days given severity of illness.
== END 2024-05-11 00:33 | disposition left against medical advice (07) | DRG 121 ==
LOC: ED 05-09 01:05 → MEDSURG 05-09 01:51
PROVIDERS: Family Medicine; Admitting Provider Internal Medicine; Emergency Provider Internal Medicine; Visit Provider Internal Medicine
DX: H05.011 Cellulitis of right orbit (principal); A41.9 Sepsis, unspecified organism; L03.116 Cellulitis of left lower limb; Z16.39 Resistance to other specified antimicrobial drug; F11.20 Opioid dependence, uncomplicated; L03.012 Cellulitis of left finger; F15.90 Other stimulant use, unspecified, uncomplicated; F43.10 Post-traumatic stress disorder, unspecified; F17.210 Nicotine dependence, cigarettes, uncomplicated; B95.61 Methicillin susceptible Staphylococcus aureus infection as the cause of diseases classified elsewhere
CPT/HCPCS: 36415; 70486; 80048; 80053; 80306; 83605; 85025; 85651; 86140; 87040; 87070; 87186; 93306; 99283; 99284; 99285; A9270; G0378; J1170; J1885; J2060; J2405; J2543; J3372; J7030; J7050